=== PATIENT | female | born 1990 | race Caucasian/White ===

== ENCOUNTER 2018-04-15 21:50 | Emergency (ER) | payer OTHER, SELFPAY ==
[2018-04-15 21:53] VITALS: BP 123/78; PULSE 86; RESP 16; TEMP 36.4; O2SAT 95; BMI 27.4
[2018-04-15 22:35] LABS: Bacteria Urine Moderate (10-30); Culture Indicated Urine Cult Not Indicated; Hyaline Casts Urine 0-1/LPF; RBC Urine 0-1/HPF (0-5/HPF); Squamous Epithelial Cell Urine 5-10 /HPF; WBC Urine 0-1/HPF (0-5/HPF)
[2018-04-15] MEDS: KETOROLAC 60 MG/2 ML VIAL IM (22:58)
[2018-04-15] MEDS: CYCLOBENZAPRINE 10 MG PREPACK 1 BOTTLE MISC (22:58)
[2018-04-15 23:04] VITALS: BP 127/74; PULSE 71; RESP 20; O2SAT 100
--- NOTE | 2018-04-16 00:28 | ED_ITS ---
HPI - Back Pain/Injury General Chief Complaint: Back Pain/Injury Stated Complaint: BACK PAIN Time Seen by Provider: 04/15/18 21:53 Source: patient and family Mode of arrival: ambulatory Limitations: no limitations History of Present Illness HPI Narrative: A 19-year-old nonsmoking healthy female presents with her for evaluation of moderate bilateral low back pain since yesterday. She denies any specific injury but does have 2 young children. Her pain is worse with motion and improves with rest. She denies any numbness, tingling or weakness. She has no midline pain nor fever or chills. She denies any trouble with control of bowel or bladder. MD Complaint: back pain Onset (ago): day(s) Duration: constant Similar Symptoms Previously: No Location: lumbar spine Severity: moderate Quality: aching Radiation: none Relieving factors: immobilization Exacerbating factors: movement Associated symptoms: denies other symptoms Treatments prior to arrival: NSAIDS and acetaminophen Related Data Previous Rx's Medication Instructions Recorded cyclobenzaprine 10 mg PO TID PRN #14 tab 04/15/18 ketorolac 10 mg PO Q6H PRN #14 tab 04/15/18 Allergies Allergy/AdvReac Type Severity Reaction Status Date / Time amoxicillin Allergy Rash Verified 04/15/18 22:03 cefaclor [From [facility]] Allergy Rash Verified 04/15/18 22:03 Review of Systems Review of Systems All systems reviewed & are unremarkable except as noted in HPI and below Constitutional Denies chills, Denies fever(s), Denies lethargy and Denies weakness Eyes Denies change in vision, Denies eye discharge, Denies irritation and Denies loss of vision ENT Ears, Nose, Mouth, and Throat: Denies change in voice, Denies neck pain and Denies sore throat Cardiovascular Denies chest pain, Denies irregular heart rhythm, Denies lightheadedness, Denies palpitations, Denies dyspnea, Denies dyspnea on exertion and Denies orthopnea Respiratory Denies cough, Denies dyspnea, Denies dyspnea on exertion and Denies wheezing Gastrointestinal Gastrointestinal: Denies abdominal pain, Denies change in bowel habits, Denies diarrhea, Denies nausea and Denies vomiting Genitourinary Denies hematuria, Denies flank pain, Denies urinary incontinence and Denies urinary urgency Musculoskeletal Reports back pain and Denies neck pain Integumentary/Breasts Denies pruritus, Denies erythema, Denies rash and Denies wounds Neurologic Denies confusion, Denies loss of vision and Denies weakness Psychiatric Denies anxiety, Denies confusion, Denies depression, Denies homicidal ideation and Denies suicidal ideation Endocrine Denies palpitations Hematologic/Lymphatic Denies easy bruising Allergic/Immunologic Denies wheezing PFSH Social History Smoking Status: Never smoker Exam Narrative Exam Narrative: GEN: AOx3 and in mild distress EYES: Pupils are equal, round, and reactive to light and accommodation. Extraoccular muscles are intact bilaterally. There is no subconjunctival hemorrhage or exudate. CHEST: Lungs are clear to auscultation bilaterally and free of wheezes, rales, or rhonchi. Heart rate is regular rhythm, there are no murmurs, clicks, rubs, or gallops. There is no chest wall tenderness. ABD: Abdomen is soft and nontender. There is no guarding or rebound. Bowel sounds are normal in all 4 quadrants. There is no mass or organomegaly. EXT: Full painless ROM of all extremities with no loss of sensation or strength. SKIN: Warm, pink, and dry. No erythema or rash BACK: disk and tape machine tender but free of any obvious external abnormalities. Patient exam notes decreased range of motion and muscle spasm, but no CVA tenderness, or vertebral point tenderness. There are no symptoms of cauda equina such as saddle anesthesia, and decreased reflexes, decreased sensation or strength. Initial Vital Signs Initial Vital Signs: Vital Signs Temperature 97.5 F L 04/15/18 21:53 Pulse Rate 86 04/15/18 21:53 Respiratory Rate 16 04/15/18 21:53 Blood Pressure 123/78 04/15/18 21:53 Pulse Oximetry 95 04/15/18 21:53 Course Orders Ordered: ED Orders 04/15/18 22:22 Urine Microscopic Stat Discontinued Medications Cyclobenzaprine HCl (Flexeril 10 Mg Prepack) 1 bottle MISC SEEINSTR ONE Stop: 04/15/18 22:46 Last Admin: 04/15/18 22:58 Dose: 1 bottle Ketorolac Tromethamine (Toradol) 60 mg IM NOW ONE Stop: 04/15/18 22:46 Last Admin: 04/15/18 22:58 Dose: 60 mg Vital Signs - 8 hr 04/15/18 21:53 04/15/18 23:04 Temperature 97.5 F L Pulse Rate 86 71 Respiratory Rate 16 20 Blood Pressure 123/78 127/74 Pulse Oximetry 95 100 MDM - Back Pain/Injury Differential Diagnosis Differential diagnosis: Likely lumbar radiculopathy, sciatica, strain of lumbar region, renal colic, pyelonephritis, thoracic back pain and discitis Lab Data Lab Results 04/15/18 Range/Units 22:22 Urine RBC 0-1/hpf (0-5/HPF) Urine WBC 0-1/hpf (0-5/HPF) Ur Squamous Epith Cells 5-10 /hpf H Urine Bacteria Moderate (10-30) H (None) Hyaline Casts 0-1/lpf (None) Ur Culture Indicated? Cult not indicated Micro UA Comment Not Reportable Point of Care Testing Test Results Negative Urine Dip Bedside Urine Glucose Negative Bedside Urine Bilirubin - Negative Bedside Urine Ketone - Negative Urine Specific Edwards 1.025 Bedside Urine Occult Blood +/- Bedside Urine pH 6.0 Bedside Urine Protein - Negative Bedside Urine Urobilinogen - Negative Bedside Urine Nitrite - Negative Bedside Urine Leukocytes - Negative Esterase Discharge Plan Departure Patient Disposition: Home Clinical Impression: Strain of lumbar region Discharge Date/Time: 04/15/18 23:05 Interventions: ED Discharge Assessment Last Done: 04/15/18 23:04 Instructions: Activity May Be Better then Rest for Low Back Pain Recovery Activity Restrictions/Additional Instructions: *You have been diagnosed with [ acute lumbar pain ] *What to do: *Take medications as directed *Follow up with your primary care provider in 2-3 days, call for an appointment. Let them know you were seen in the Emergency Department and that we ask that you be seen in follow up *Return to ER if you should have any new, worsening or concerning symptoms , such as [ increasing pain, numbness, tingling, weakness, loss of control of bowel or bladder] Prescriptions: New cyclobenzaprine 10 mg tablet 10 mg PO TID PRN (Reason: muscle spasm) Qty: 14 RF: 0 ketorolac 10 mg tablet 10 mg PO Q6H PRN (Reason: pain) Qty: 14 RF: 0
== END 2018-04-15 23:06 | disposition home or self-care (01) ==
PROVIDERS: Emergency Provider Emergency Medicine
DX: S39.012A Strain of muscle, fascia and tendon of lower back, initial encounter (principal)
CPT/HCPCS: 81003; 81015; 81025; 96372; 99283; J1885

== ENCOUNTER 2019-06-17 11:39 | Emergency (ER) | payer OTHER, SELFPAY ==
--- NOTE | 2019-06-17 11:50 | DI.RAD.S_ITS ---
PROCEDURE: XR ANKLE LT MIN 3V INDICATIONS: injury TECHNIQUE: 3 views of the ankle were acquired. COMPARISON: None. FINDINGS: Bones: There is a nondisplaced fifth metatarsal base fracture. Soft tissues: No tibiotalar joint effusion. Achilles tendon appears normal. IMPRESSION: Nondisplaced fifth metatarsal base fracture. Dictated by: Natalie Magdaleno M.D. on 06/17/2019 at 12:19 Approved by: Natalie Magdaleno M.D. on 06/17/2019 at 12:20
[2019-06-17 12:12] VITALS: BP 113/73; PULSE 80; RESP 12; TEMP 36.9; O2SAT 99
--- NOTE | 2019-06-17 12:25 | ED.LOWEXIN ---
HPI - Extremity Injury (Lower) <VICTORINO Chirinos - Last Filed: 06/17/19 13:26> General Chief Complaint: Extremity Injury, Lower Stated Complaint: fell, rolled ankle (left) Time Seen by Provider: 06/17/19 12:16 Source: patient Mode of arrival: Ambulatory Limitations: no limitations History of Present Illness HPI Narrative: This is a 29-year-old female, nonsmoker, who presents to ED with family member with chief complain of left lateral foot pain and s/p inverted the affected foot this morning. Reports she was running while wearing large side sleeper and tripped which caused inverting affected foot and landed on right knee. Right knee has superficial abrasion and denies difficulty with movement or severe pain. Pain worse on the left foot with movements. Patient reports intact sensation. She denies previous injury to left foot or ankle. Related Data Previous Rx's Medication Instructions Recorded cyclobenzaprine 10 mg PO TID PRN #14 tab 04/15/18 ketorolac 10 mg PO Q6H PRN #14 tab 04/15/18 Allergies Allergy/AdvReac Type Severity Reaction Status Date / Time amoxicillin Allergy Rash Verified 04/15/18 22:03 cefaclor [From [facility]] Allergy Rash Verified 04/15/18 22:03 Review of Systems <VICTORINO Chirinos - Last Filed: 06/17/19 13:26> Review of Systems Narrative: General: Denies fever, chills, fatigue, malaise, sweats. Respiratory: Denies dyspnea, cough, wheezing, hemoptysis, sputum. Cardiovascular: Denies chest pain, palpitations, orthopnea, edema. Gastrointestinal: Denies nausea, vomiting, abdominal pain, diarrhea, constipation, melena. Musculoskeletal: See HPI Skin: Denies rash, skin lesions, or other. Neurologic: Denies weakness, headache, numbness, change in speech, confusion, seizures, incoordination. Patient History <VICTORINO Chirinos - Last Filed: 06/17/19 13:26> Surgical History History of appendectomy (Acute) History of section (Acute) Social History Smoking Status: Never smoker Smoking Status: Never smoker Substance Use Type: does not use Exam <Demetri VICTORINO Younger - Last Filed: 06/17/19 13:26> Narrative Exam Narrative: General appearance: well developed, well nourished, in no acute distress. Head: normocephalic, atraumatic, no scalp lesions, non-tender. ENT: Hearing grossly intact. Nose without bleeding, purulent discharge, septal hematoma or deviation. Mucous membrane moist, no mucosal lesion. Throat without erythema, tonsillar hypertrophy or exudate. Uvula in midline, airway patent. Neck/Thyroid: neck supple, full range of motion, no visible masses or meningeal signs. No JVD, non-tender without lymphadenopathy. Skin: Superficial abrasion on right knee. no suspicious rashes, lesions over visible areas. Warm and dry and appropriate color for ethnicity. Heart: no clubbing, no cyanosis, no edema. S1 and S2 normal. RRR w/o murmurs, clicks, or bruits. Lungs: Breathing even and unlabored. No stridor. No accessory muscles used. Able to speak in full sentences. Chest: normal shape and expansion. Abdomen: non-obese, non-distended. Neurologic: alert and oriented. Cognitive exam, [employer] and PNS grossly intact on informal exam. Psych: good eye contact, normal affect. Initial Vital Signs Initial Vital Signs: Vital Signs Temperature 98.4 F 06/17/19 12:12 Pulse Rate 80 06/17/19 12:12 Respiratory Rate 12 06/17/19 12:12 Blood Pressure 113/73 06/17/19 12:12 Pulse Oximetry 99 06/17/19 12:12 Extrem Right lower extremity: full ROM and knee Details: abnormal to inspection, tenderness, normal ROM and abrasion (Superficial on anterior knee); no swelling; no edema Left lower extremity: foot Details: normal capillary refill, abnormal to inspection, tenderness (Lateral midfoot), toes with normal ROM, edema (Mild edema to lateral midfoot), vascular exam Details: dorsalis pedis pulse present, tendon exam Details: active flexion normal and active extension normal and motor-sensory exam Details: light-touch normal; no unusual warmth, no abrasions, no ecchymosis and no crepitus <Akua Gonzalez DO - Last Filed: 06/19/19 07:31> Initial Vital Signs Initial Vital Signs: Vital Signs Temperature 98.4 F 06/17/19 12:12 Pulse Rate 80 06/17/19 12:12 Respiratory Rate 12 06/17/19 12:12 Blood Pressure 113/73 06/17/19 12:12 Pulse Oximetry 99 06/17/19 12:12 Scores <Demetri SeniorKRISTIN FragosoP - Last Filed: 06/17/19 13:26> GCS [place] coma scale eye opening: Spontaneous [place] coma scale verbal response: Orientated Idalmis coma scale motor response: Obey commands [place] coma scale total score: 15 Course <Demetri VICTORINO Yonuger - Last Filed: 06/17/19 13:26> Orders Ordered: Discontinued Medications Acetaminophen (Tylenol) 650 mg PO NOW ONE Stop: 06/17/19 12:24 Ibuprofen (Advil) 400 mg PO NOW ONE Stop: 06/17/19 12:24 Vital Signs Vital signs: Vital Signs - 8 hr 06/17/19 12:12 Temperature 98.4 F Pulse Rate 80 Respiratory Rate 12 Blood Pressure 113/73 Pulse Oximetry 99 <Akua Gonzalez DO - Last Filed: 06/19/19 07:31> Orders Ordered: Discontinued Medications Acetaminophen (Tylenol) 650 mg PO NOW ONE Stop: 06/17/19 12:24 Ibuprofen (Advil) 400 mg PO NOW ONE Stop: 06/17/19 12:24 Vital Signs Vital signs: Vital Signs - 8 hr 06/17/19 12:12 Temperature 98.4 F Pulse Rate 80 Respiratory Rate 12 Blood Pressure 113/73 Pulse Oximetry 99 MDM - Extremity Injury (Lower) <Demetri KRISTIN YoungerP - Last Filed: 06/17/19 13:26> Differential Diagnosis Differential diagnosis: Likely other (Foot fracture, foot sprain, abrasion to right knee) Medical Records Attestation: I reviewed the patient's medical records. Imaging Data XR-Foot Left: Radiologist's Impression: [address] [address] XRay Report Signed Patient: Christy Eid [facility]#: [id number] : 1990Acct:[id number] Age/Sex: 29 / FDate of Service: 06/17/19 Loc: ED Accession Number: [id number] Procedure: XR foot LT min 3V Ordering Provider: Demetri Younger PROCEDURE: XR FOOT LT MIN 3V INDICATIONS: 5th metatarsal fracture, s/p inverted foot TECHNIQUE: 3 views of the foot were acquired. COMPARISON: [facility], , XR ANKLE LT MIN 3V, 06/17/2019, 11:59. FINDINGS: Bones: Minimally displaced fifth metatarsal base fracture. Soft tissues: No tibiotalar joint effusion. Achilles tendon appears normal. IMPRESSION: Minimally displaced fifth metatarsal base fracture. Dictated by: Natalie Magdaleno M.D. on 06/17/2019 at 13:11 Approved by: Natalie Magdaleno M.D. on 06/17/2019 at 13:13 XR-Ankle LT: Radiologist's Impression: [address] [address] XRay Report Signed Patient: Christy Eid [facility]#: [id number] : 1990Acct:[id number] Age/Sex: 29 / FDate of Service: 06/17/19 Loc: ED Accession Number: [id number] Procedure: XR ankle LT min 3V Ordering Provider: Akua Gonzalez D.O. PROCEDURE: XR ANKLE LT MIN 3V INDICATIONS: injury TECHNIQUE: 3 views of the ankle were acquired. COMPARISON: None. FINDINGS: Bones: There is a nondisplaced fifth metatarsal base fracture. Soft tissues: No tibiotalar joint effusion. Achilles tendon appears normal. IMPRESSION: Nondisplaced fifth metatarsal base fracture. Dictated by: Natalie Magdaleno M.D. on 06/17/2019 at 12:19 Approved by: Natalie Magdaleno M.D. on 06/17/2019 at 12:20 MDM Narrative Medical decision making narrative: Xray test on L foot indicates minimally displaced 5th metatarsal fracture. Affected foot has been splinted with a posterior leg and crutches provided for nonweightbearing. RICE therapy discussed for pain, swelling and inflammation. Patient advised to use [id number] Tylenol and or Motrin as needed for discomfort and to follow up with [facility] orthopedist. Patient verbalized understanding and agrees with the treatment plan. Discharge Plan Departure Patient Disposition: Home Clinical Impression: Closed fracture of fifth metatarsal bone of left foot Qualifiers: Encounter type: initial encounter Fracture alignment: displaced Qualified Code(s): S92.352A - Displaced fracture of fifth metatarsal bone, left foot, initial encounter for closed fracture Discharge Date/Time: 06/17/19 13:34 Activity Restrictions/Additional Instructions: You have been diagnosed with [minimally displaced 5th metatarsal fracture on left foot. Her foot has been placed in a splint and crutches been given for nonweightbearing.]. What to do: *Take your medications as directed. Please take Tylenol and or Motrin as needed for discomfort. Tylenol 650-1000 mg up to 4 times a day for pain. Ibuprofen 400 mg 3 times a day with food as needed for discomfort. Please elevate your affected foot for pain and swelling. Use cool pack for next couple of days for swelling, inflammation and pain. Keep your splint on all time. *Follow up with your primary care provider in 2-3 days, call for an appointment and please contact [facility]. Let them know you were seen in the ED and that we asked you to be seen in follow up. *Return to ED if you have any new, worsening, or concerning symptoms, such as [severe pain, tingling/numbness/weakness to you're affected foot, chest pain, breathing difficulty, unable to tolerate fluids or any acute concerns]. Prescriptions: No Action cyclobenzaprine 10 mg tablet 10 mg PO TID PRN (Reason: muscle spasm) Qty: 14 RF: 0 ketorolac 10 mg tablet 10 mg PO Q6H PRN (Reason: pain) Qty: 14 RF: 0 Referrals: [facility] [Provider Group] [facility] [Outside]
--- NOTE | 2019-06-17 12:32 | DI.RAD.S_ITS ---
PROCEDURE: XR FOOT LT MIN 3V INDICATIONS: 5th metatarsal fracture, s/p inverted foot TECHNIQUE: 3 views of the foot were acquired. COMPARISON: [facility], CR, XR ANKLE LT MIN 3V, 06/17/2019, 11:59. FINDINGS: Bones: Minimally displaced fifth metatarsal base fracture. Soft tissues: No tibiotalar joint effusion. Achilles tendon appears normal. IMPRESSION: Minimally displaced fifth metatarsal base fracture. Dictated by: Natalie Magdaleno M.D. on 06/17/2019 at 13:11 Approved by: Natalie Magdaleno M.D. on 06/17/2019 at 13:13
== END 2019-06-17 13:34 | disposition home or self-care (01) ==
PROVIDERS: Emergency Provider Nurse Practitioner Family
DX: S92.352A Displaced fracture of fifth metatarsal bone, left foot, initial encounter for closed fracture (principal); W01.0XXA Fall on same level from slipping, tripping and stumbling without subsequent striking against object, initial encounter
CPT/HCPCS: 29515; 73610; 73630; 99283; 99284

== ENCOUNTER → 2020-06-09 11:11 | Outpatient (CLI) | payer OTHER, SELFPAY ==
[2020-06-09 12:42] LABS: COVID19 -Nasal RAPID Negative (Negative)
== END ==
PROVIDERS: PCP Family Medicine; Visit Provider Nurse Practitioner
DX: Z20.822 Contact with and (suspected) exposure to COVID-19 (principal)
CPT/HCPCS: 87635

== ENCOUNTER 2020-06-10 09:17 | Day surgery (SDC) | payer OTHER, SELFPAY ==
[2020-06-10] VITALS (12 sets, daily range): BP systolic 104–136; BP diastolic 71–85; PULSE 74–97; RESP 12–16; TEMP 36.5–37.1; O2SAT 97–99; BMI 29.2
--- NOTE | 2020-06-10 09:56 | PM.PREOP ---
Pre-operative Note COVID-19 COVID-19 status: Negative Result date/Date tested (Pos, Neg/Pending): 06/09/20 Interval Note History & Physical reviewed/Exam performed by Physician: Yes Changes to H&P: No
--- NOTE | 2020-06-10 09:57 | PM.OP.1 ---
Operative Date/Time/Diagnoses Date of procedure: 06/10/20 Time of procedure: 12:33 Pre-op diagnosis: MELVI, Septal deviation, ITH, Allergic Rhinitis Post-op diagnosis: same Procedure & Clinicians Procedure: Septoplasty, ITR via intramural cautery Same procedure as scheduled: Yes Indications: 30-year-old female with the above diagnoses incompletely managed with medical therapy presents for the above procedures. Following discussion of the material risks benefits complications and alternatives, she elected to proceed. Surgeon: Ed Carrillo Click Yes if Unassisted: Yes Anesthesia Type: General and Local Operative Notes Findings: RIGHT caudal deviation 2-3+, LEFT high/posterior deviation 2-3+, elongated caudal septum required shortening Closure Type: primary Specimen(s): none sent Estimated Blood Loss (mL): 130 Procedure in detail: Following identification and confirmation of consent as well as preoperative Afrin nasal spray, the patient was brought to the operating room suite and placed in the supine position. General endotracheal anesthesia was administered. I infiltrated the septum widely bilaterally with 1% lidocaine 1 100,000 epinephrine followed by temporary packing with cotton with Afrin and 4% lidocaine. Following sterile prep and drape, the packing was removed and I performed a right isai-transfixion incision, elevated the right mucoperichondrial and mucoperiosteal flap. I disarticulated near the bony/cartilaginous junction and elevated the left mucoperiosteal flap. Deviated portions of the perpendicular plate of the ethmoid and vomer were resected. The residual quadrilateral cartilage was further straightened by trimming it inferiorly as well as reducing the maxillary crest. A 2 mm strip of cartilage paralleling the residual 1 cm dorsal and caudal strut was resected to further straighten the quadrilateral cartilage. The hemitransfixion incision was closed with interrupted 5 0 chromic followed by a running 4 0 plain gut mattress suture to reapproximate the septal flaps. At case completion, 20/1000th of an inch silastic splints were placed bilaterally, sutured anteriorly with a single 4 0 nylon. The head of each inferior turbinate had been previously infiltrated with additional local anesthetic and a 25 gauge spinal needle was used to impale the length of the turbinate, with cautery on a setting of 15 activated on slow withdrawal X 2. The turbinates were then outfractured. The procedure completed, sponge and needle counts were correct and the patient was extubated in the operating room and taken to recovery room in stable condition without known complication. Postoperative care: Nasal saline every hour while awake, Vaseline or Polysporin to the nostrils at all times, ice to the upper lip, begin irrigations t.i.d. beginning pod 1. Humidifier at the bedside blowing on the face. Tylenol alternating with Advil for pain control, oxycodone if necessary for breakthrough pain. Complications: none Post-operative Condition: stable Disposition: same day surgery Plan for aftercare: Ice to upper lip as tolerated. Nasal saline Qh while awake, vaseline or polysporin to the nostrils at all times, irrigate TID beginning tomorrow if desired, elevate HOB, alternate Tylenol and Advil Q3h, Oxycodone for breakthru pain. Follow-up in 1 week for splint removal.
[2020-06-10] MEDS: LACTATED RINGERS 1,000 ML 42 ML IV (10:01)
[2020-06-10] MEDS: OXYMETAZOLINE NASAL SPRAY 15 ML 2 SPRAYS NASAL ×2 (10:05→11:31)
--- NOTE | 2020-06-10 11:18 | SUR.OPER ---
Supine on padded OR bed, head on pillow, arm padded and tucked at side, legs uncrossed, safety belt at thigh, tape over blanket over lower legs .
[2020-06-10] MEDS: LIDOCAINE 4% SOLN 50 ML 20 ML TOP (11:29)
[2020-06-10] MEDS: LIDOCAINE 1% W/EPI 20 ML INJ (11:30)
[2020-06-10] MEDS: ONDANSETRON 4 MG/2 ML INJ IV (12:52)
[2020-06-10] MEDS: OXYCODONE IR 5 MG TABLET PO ×2 (13:05→14:09)
[2020-06-10] MEDS: ACETAMINOPHEN 325 MG TABLET 650 MG PO (13:06)
== END 2020-06-10 15:10 | disposition home or self-care (01) ==
PROVIDERS: PCP Family Medicine; Referring Provider Otolaryngology; Visit Provider Otolaryngology
PROC: (CPT 30520; principal; 2020-06-10 10:30)
DX: J34.89 Other specified disorders of nose and nasal sinuses (principal); J34.2 Deviated nasal septum; J34.3 Hypertrophy of nasal turbinates; J30.9 Allergic rhinitis, unspecified
CPT/HCPCS: 30520; 30140; 81025; A9270; J1100; J2250; J2405; J2704; J3010

== ENCOUNTER 2020-11-06 15:02 | Emergency (ER) | payer OTHER, SELFPAY ==
[2020-11-06 15:23] VITALS: BP 121/79; PULSE 89; RESP 18; TEMP 37.1; O2SAT 97; BMI 27.4
[2020-11-06 15:42] LABS: Add Manual Diff / Slide Review NO; Basophils Absolute Auto 100 /uL (0-100); Basophils Percent Auto 0.6 % (0-2); Eosinophils Absolute Auto 200 /uL (0-450); Eosinophils Percent Auto 2.3 % (2-4); Hematocrit 38.8 % (36-46); Hemoglobin 13.2 g/dL (12.0-16.0); Lymphocytes Absolute Auto 2600 /uL (1100-4500); Lymphocytes Percent Auto 29.8 % (25-40); Mean Corpuscular HGB Conc 34.1 % (30-36); Mean Corpuscular Hemoglobin 28.6 PG (26-34); Mean Corpuscular Volume 83.7 fL (80-100); Monocytes Absolute Auto 500 /uL (0-900); Monocytes Percent Auto 5.8 % (3-14); Neutrophils Absolute Auto 5300 /uL (1500-7000); Neutrophils Percent Auto 61.5 % (50-75); Platelet Count 300 X10^3/uL (150-400); Red Blood Cell Count 4.63 X10^6/uL (4.0-5.2); White Blood Cell Count 8.7 X10^3/uL (4.5-11.0)
[2020-11-06 15:53] LABS: BUN Creatinine Ratio 14.3 (6-22); Blood Urea Nitrogen 9 mg/dL (7-17); Calcium 9.7 mg/dL (8.4-10.2); Carbon Dioxide 27 mmol/L (22-32); Chloride 105 mmol/L (98-107); Estimated Glomerular Filt Rate > 60.0 mL/min (>60); Glucose 101 mg/dL (70-100); HEMOLYSIS < 15 (0-50); Potassium 3.7 mmol/L (3.4-5.1); Sodium 140 mmol/L (137-145)
[2020-11-06 16:08] LABS: Bacteria Urine None Seen
[2020-11-06 16:12] LABS: RBC Urine >100/HPF (0-5/HPF); Squamous Epithelial Cell Urine 0-1 /HPF (0-5/HPF); WBC Urine 0-1/HPF (0-5/HPF)
--- NOTE | 2020-11-06 16:12 | ED.GENADULT ---
HPI - General Adult General Chief complaint: Vaginal Bleeding Stated complaint: Heavier than Normal Bleeding, Dizziness Time Seen by Provider: 11/06/20 15:52 Source: patient Mode of arrival: Ambulatory Limitations: no limitations History of Present Illness HPI narrative: Patient is a 30-year-old female who approximately 2 weeks ago had a Mirena IUD removed. She states she had had it in for about 4 years and she and her are now at a point where they would like to try to have children. She states that it was a uncomplicated procedure about 2 days later she had which she thought was a normal menstrual cycle that lasted approximately 4 days. Her symptoms then completely resolved and a couple days ago bleeding restarted and she is now having more bleeding and lower abdominal discomfort. She also feels very lightheaded. Prior to the insertion of the IUD she states she was very regular with her menstrual cycles. She did not have any menstrual cycles while she had the IUD in place. Related Data Home Medications Medication Instructions Recorded Confirmed acetaminophen [Tylenol Extra 1,000 mg PO Q6H PRN 06/09/20 06/10/20 Strength] ibuprofen 400 mg PO Q6H PRN 06/09/20 06/10/20 multivitamin 1 tab PO DAILY 06/09/20 06/10/20 Allergies Allergy/AdvReac Type Severity Reaction Status Date / Time amoxicillin Allergy Rash Verified 06/10/20 09:43 cefaclor [From Ceclor] Allergy Rash Verified 06/10/20 09:43 Review of Systems Constitutional Constitutional: Denies headache(s) ENT Ears, Nose, Mouth, and Throat: Denies headache(s) Cardiovascular Cardiovascular: Denies syncope, Denies rapid heart rate and Denies dyspnea Respiratory Respiratory: Denies cough and Denies dyspnea Gastrointestinal Gastrointestinal: Reports abdominal pain, Denies nausea and Denies vomiting Genitourinary Genitourinary: Denies dysuria Genitourinary: Reports abnormal vaginal bleeding and Denies dysuria Musculoskeletal Musculoskeletal: Reports system reviewed and no additional complaints, except as documented Integumentary/Breasts Skin/Breast: Reports system reviewed and no additional complaints, except as documented Neurologic Neurologic: Denies syncope and Denies headache(s) Hematologic/Lymphatic On Anticoagulants: No Allergic/Immunologic Allergic/Immunologic: Reports system reviewed and no additional complaints, except as documented Patient History Medical History Allergic rhinitis Anxiety Depression Fracture of 5th metatarsal Nasal septal deviation Nasal turbinate hypertrophy Surgical History History of appendectomy History of section Social History household members: spouse and children Smoking Status: Never smoker alcohol intake: current Smoking Status: Never smoker alcohol intake frequency: holidays/special occasions only Substance Use Type: does not use Exam Initial Vital Signs Initial Vital Signs: Vital Signs Temperature 98.8 F 11/06/20 15:23 Pulse Rate 89 11/06/20 15:23 Respiratory Rate 18 11/06/20 15:23 Blood Pressure 121/79 11/06/20 15:23 Pulse Oximetry 97 11/06/20 15:23 Const General: cooperative and comfortable Limitations: mental status not altered HENMT Head: normal to inspection and normocephalic Resp Effort & Inspection: normal respiratory effort Auscultation: clear to auscultation bilaterally Cardio Rate: regular rate Rhythm: regular rhythm GI Inspection: non-distended Skin Lesions: no lesions Rashes: no rashes Neuro General: patient alert and patient awake Cognition: normal cognition Speech: speech normal Extrem General: normal to inspection and capillary refill normal Psych Appearance: grossly normal and well kempt Course Orders Ordered: ED Orders 11/06/20 15:12 Urine Microscopic Stat 11/06/20 15:28 Basic Metabolic Panel Stat Complete Blood Count AUTO DIFF Stat Vital Signs Vital signs: Vital Signs - 8 hr 11/06/20 15:23 11/06/20 16:25 Temperature 98.8 F Pulse Rate 89 81 Respiratory Rate 18 16 Blood Pressure 121/79 Pulse Oximetry 97 97 Medical Decision Making Lab Data Lab results reviewed: Yes I reviewed the patient's lab results. Result diagrams: 11/06/20 15:28 11/06/20 15:28 Labs: Lab Results 11/06/20 11/06/20 11/06/20 Range/Units 15:12 15:28 15:28 WBC 8.7 (4.5-11.0) X10^3/uL RBC 4.63 (4.0-5.2) X10^6/uL Hgb 13.2 (12.0-16.0) g/dL Hct 38.8 (36-46) % MCV 83.7 (80-100) fL MCH 28.6 (26-34) PG MCHC 34.1 (30-36) % RDW 13.0 (11.6-14.8) % Plt Count 300 (150-400) X10^3/uL Neut % (Auto) 61.5 (50-75) % Lymph % (Auto) 29.8 (25-40) % [place] % (Auto) 5.8 (3-14) % Eos % (Auto) 2.3 (2-4) % Baso % (Auto) 0.6 (0-2) % Neut # (Auto) 5300 (2554-8002) /uL Lymph # (Auto) 2600 (3234-8584) /uL [place] # (Auto) 500 (0-900) /uL Eos # (Auto) 200 (0-450) /uL Baso # (Auto) 100 (0-100) /uL Sodium 140 (137-145) mmol/L Potassium 3.7 (3.4-5.1) mmol/L Chloride 105 (98-107) mmol/L Carbon Dioxide 27 (22-32) mmol/L BUN 9 (7-17) mg/dL Creatinine 0.63 (0.52-1.04) mg/dL Estimated GFR > 60.0 (>60) mL/min BUN/Creatinine Ratio 14.3 (6-22) Glucose 101 H (70-100) mg/dL Calcium 9.7 (8.4-10.2) mg/dL Urine RBC >100/hpf H (0-5/HPF) Urine WBC 0-1/hpf (0-5/HPF) Ur Squamous Epith Cells 0-1 /hpf (0-5/HPF) Urine Bacteria None seen (None) Ur Culture Indicated? Cult not indicated Point of Care Testing Test Results Negative Urine Dip Bedside Urine Glucose Negative Bedside Urine Bilirubin - Negative Bedside Urine Ketone - Negative Urine Specific [place] 1.015 Bedside Urine Occult Blood +++ Bedside Urine pH 6 Bedside Urine Protein + 30 Bedside Urine Urobilinogen - Negative Bedside Urine Nitrite - Negative Bedside Urine Leukocytes - Negative Esterase Point of care testing: Point of Care Testing Test Results Negative Urine Dip Bedside Urine Glucose Negative Bedside Urine Bilirubin - Negative Bedside Urine Ketone - Negative Urine Specific [place] 1.015 Bedside Urine Occult Blood +++ Bedside Urine pH 6 Bedside Urine Protein + 30 Bedside Urine Urobilinogen - Negative Bedside Urine Nitrite - Negative Bedside Urine Leukocytes - Negative Esterase MDM Narrative Medical decision making narrative: Labs are unremarkable. Vital signs are unremarkable. I suspect that her symptoms are related to the change in hormones that her body is experiencing after having the IUD removed. Provided reassurance to the patient. I feel that we can hold on further workup for now. She was given strict return precautions. She expressed understanding and agreement. Discharge Plan Departure Patient Disposition: Home Clinical Impression: Abnormal vaginal bleeding Instructions: DI for Vaginal Bleeding Activity Restrictions/Additional Instructions: I recommend that you contact her primary doctor for follow-up. I suspect that the abnormal bleeding that you are having is related to the change in hormones because you had the IUD removed.Return to the emergency department for any new or worsening symptoms Prescriptions: No Action multivitamin Tablet 1 tab PO DAILY RF: 0 ibuprofen 200 mg Capsule 400 mg PO Q6H PRN (Reason: Pain) RF: 0 acetaminophen [Tylenol Extra Strength] 500 mg Tablet 1,000 mg PO Q6H PRN (Reason: Pain) RF: 0 Referrals: Ayla Horta [Primary Care Provider] -
[2020-11-06 16:13] LABS: Culture Indicated Urine Cult Not Indicated
[2020-11-06 16:25] VITALS: PULSE 81; RESP 16; O2SAT 97
== END 2020-11-06 16:27 | disposition home or self-care (01) ==
PROVIDERS: Emergency Medicine; Emergency Provider Emergency Medicine; PCP Family Medicine
DX: N93.9 Abnormal uterine and vaginal bleeding, unspecified (principal)
CPT/HCPCS: 36415; 80048; 81003; 81015; 81025; 85025; 99283

== ENCOUNTER 2021-10-03 16:14 | Emergency (ER) | payer OTHER, SELFPAY ==
[2021-10-03 16:45] VITALS: BP 127/74; PULSE 92; RESP 18; TEMP 38.3; O2SAT 97; BMI 26.5
--- NOTE | 2021-10-03 16:49 | DI.RAD.S_ITS ---
PROCEDURE: XR CHEST 1V INDICATIONS: cough, chest pain TECHNIQUE: One view of the chest was acquired. COMPARISON: None. FINDINGS: Surgical changes and devices: None. Lungs and pleura: Lungs are clear. No pleural effusions or pneumothorax. Mediastinum: Mediastinal contours appear normal. Heart size is normal. Bones and chest wall: No suspicious bony lesions. Overlying soft tissues appear unremarkable. IMPRESSION: No acute cardiopulmonary disease process. Dictated by: Jeimy Jackson MD, PhD on 10/03/2021 at 17:16 Approved by: Jeimy Jackson MD, PhD on 10/03/2021 at 17:16
[2021-10-03 17:08] LABS: COVID19 -Nasal RAPID POSITIVE (Negative)
--- NOTE | 2021-10-03 19:49 | ED.FEVER ---
HPI - Fever <Tristan Greene PA-C - Last Filed: 10/03/21 19:56> General Chief Complaint: Fever Stated Complaint: COUGH HEADACHE CHEST PAIN Time Seen by Provider: 10/03/21 17:28 Source: patient Mode of arrival: Ambulatory History of Present Illness HPI Narrative: 31-year-old female with no reported past medical history presents to the ED with 1 week of fever, cough. Patient denies sore throat, runny nose, chest pain, shortness of breath, nausea, vomiting, diarrhea, lightheadedness, dizziness, syncope. Patient is vaccinated for COVID-19. Related Data Home Medications Medication Instructions Recorded Confirmed acetaminophen 500 mg tablet 1,000 mg PO Q6H PRN 06/09/20 06/10/20 (Tylenol Extra Strength) ibuprofen 200 mg capsule 400 mg PO Q6H PRN 06/09/20 06/10/20 multivitamin 1 tab PO DAILY 06/09/20 06/10/20 Allergies Allergy/AdvReac Type Severity Reaction Status Date / Time amoxicillin Allergy Rash Verified 06/10/20 09:43 cefaclor [From [facility]] Allergy Rash Verified 06/10/20 09:43 Review of Systems <Tristan Greene PA-C - Last Filed: 10/03/21 19:56> Review of Systems ROS Unobtainable: All systems reviewed & are unremarkable except as noted in HPI and below Constitutional Constitutional: Denies chills, Reports fatigue, Reports fever(s), Denies frequent falls, Denies lethargy and Denies weakness Eyes Eyes: Denies change in vision, Denies eye discharge, Denies irritation and Denies loss of vision ENT Ears, Nose, Mouth, and Throat: Denies change in voice, Denies dizziness, Denies neck pain, Denies sore throat and Denies throat swelling Cardiovascular Cardiovascular: Denies chest pain, Denies irregular heart rhythm, Denies lightheadedness, Denies palpitations, Denies dyspnea, Denies dyspnea on exertion and Denies orthopnea Respiratory Respiratory: Reports cough, Denies dyspnea, Denies dyspnea on exertion and Denies wheezing Gastrointestinal Gastrointestinal: Denies abdominal pain, Denies change in bowel habits, Denies diarrhea, Denies nausea and Denies vomiting Genitourinary Genitourinary: Denies hematuria, Denies flank pain, Denies urinary incontinence and Denies urinary urgency Musculoskeletal Musculoskeletal: Denies back pain, Denies muscle weakness, Denies neck pain, Denies numbness and Denies tingling Integumentary/Breasts Skin/Breast: Denies pruritus, Denies erythema, Denies rash and Denies wounds Neurologic Neurologic: Denies behavioral changes, Denies confusion, Denies dizziness, Denies frequent falls, Denies loss of vision, Denies numbness, Denies tingling and Denies weakness Psychiatric Psychiatric: Denies anxiety, Denies behavioral changes, Denies confusion, Denies depression, Denies homicidal ideation and Denies suicidal ideation Endocrine Endocrine: Reports fatigue, Denies flushing and Denies palpitations Hematologic/Lymphatic Hematologic/Lymphatic: Denies easy bruising Allergic/Immunologic Allergic/Immunologic: Denies urticaria, Denies throat swelling and Denies wheezing Patient History <Tristan Greene PA-C - Last Filed: 10/03/21 19:56> Medical History Allergic rhinitis Anxiety Depression Fracture of 5th metatarsal Nasal septal deviation Nasal turbinate hypertrophy Surgical History History of appendectomy History of section Social History household members: spouse and children Smoking Status: Never smoker alcohol intake: current Smoking Status: Never smoker alcohol intake frequency: holidays/special occasions only Substance Use Type: does not use Exam <Tristan Greene PA-C - Last Filed: 10/03/21 19:56> Narrative Exam Narrative: Const General:?cooperative, healthy appearing and comfortable [facility] Head:?normal to inspection Ears:?hearing grossly normal bilaterally Nose:?external nose normal Face and sinus:?normal facial exam and sinuses nontender Mouth:?oral mucosae normal Throat:?posterior oropharynx normal Eyes General:?appearance normal, both eyes and all related structures Neck Neck:?normal visual inspection and no lymphadenopathy noted Resp Effort & Inspection:?normal respiratory effort Auscultation:?clear to auscultation bilaterally Cardio Rate:?regular rate Rhythm:?regular rhythm Neuro General:?patient alert, patient awake and patient oriented x3 Initial Vital Signs Initial Vital Signs: Vital Signs Temperature 100.9 F H 10/03/21 16:45 Pulse Rate 92 H 10/03/21 16:45 Respiratory Rate 18 10/03/21 16:45 Blood Pressure 127/74 10/03/21 16:45 Pulse Oximetry 97 10/03/21 16:45 <Juan Alcazar DO - Last Filed: 10/04/21 05:56> Initial Vital Signs Initial Vital Signs: Vital Signs Temperature 100.9 F H 10/03/21 16:45 Pulse Rate 92 H 10/03/21 16:45 Respiratory Rate 18 10/03/21 16:45 Blood Pressure 127/74 10/03/21 16:45 Pulse Oximetry 97 10/03/21 16:45 Course <Tristan Greene PA-C - Last Filed: 10/03/21 19:56> Orders Ordered: ED Orders 10/03/21 16:49 XR chest 1V Stat EKG-12 Lead Stat 10/03/21 16:53 COVID19 -Nasal RAPID/Pre-Proc Stat Vital Signs Vital signs: Vital Signs - 8 hr 10/03/21 16:45 Temperature 100.9 F H Pulse Rate 92 H Respiratory Rate 18 Blood Pressure 127/74 Pulse Oximetry 97 <Juan Alcazar DO - Last Filed: 10/04/21 05:56> Orders Ordered: ED Orders 10/03/21 16:49 XR chest 1V Stat EKG-12 Lead Stat 10/03/21 16:53 COVID19 -Nasal RAPID/Pre-Proc Stat Vital Signs Vital signs: Vital Signs - 8 hr 10/03/21 16:45 Temperature 100.9 F H Pulse Rate 92 H Respiratory Rate 18 Blood Pressure 127/74 Pulse Oximetry 97 MDM - Fever <RASHAUN Warren Last Filed: 10/03/21 19:56> Lab Data Lab results narrative: COVID 19 positive Labs: Lab Results 10/03/21 Range/Units 16:53 SARS-CoV-2 (PCR) Positive H (Negative) Point of Care Testing Test Results Negative Imaging Data Chest x-ray: Radiologist's Impression: PROCEDURE:? XR CHEST 1V ? INDICATIONS:? cough, chest pain ? TECHNIQUE:? One view of the chest was acquired.? ? COMPARISON:? None. ? FINDINGS:? ? Surgical changes and devices:? None.? ? Lungs and pleura:? Lungs are clear.? No pleural effusions or pneumothorax.? ? Mediastinum:? Mediastinal contours appear normal.? Heart size is normal.? ? Bones and chest wall:? No suspicious bony lesions.? Overlying soft tissues appear unremarkable.? ? IMPRESSION:? No acute cardiopulmonary disease process. ? ? Dictated by: Jeimy Jackson MD, PhD on 10/03/2021 at 17:16 ? ? Approved by: Jeimy Jackson MD, PhD on 10/03/2021 at 17:16 ? MDM Narrative Medical decision making narrative: 31-year-old female with no reported past medical history presents to the ED with 1 week of fever, cough. Concern for COVID-19 infection versus other viral syndrome. Patient tested positive for COVID-19 in the ED. chest x-ray without acute findings. Was stable in the ED. supportive care discussed with patient. ED return precautions discussed with patient. Patient verbalized understanding. <Juan Alcazar DO - Last Filed: 10/04/21 05:56> Lab Data Labs: Lab Results 10/03/21 Range/Units 16:53 SARS-CoV-2 (PCR) Positive H (Negative) Point of Care Testing Test Results Negative Discharge Plan Departure Patient Disposition: Home Clinical Impression: COVID-19 Instructions: DI for COVID-19 (Suspected or Confirmed ) Activity Restrictions/Additional Instructions: You were evaluated in the ED today for a fever, cough. You tested positive for COVID-19 today. You may continue to take ibuprofen, Tylenol, [id number] cough suppressants. Please make sure to stay for well hydrated. Return to the ED if you experience any chest pain or shortness of breath. Prescriptions: No Action multivitamin Tablet 1 tab PO DAILY 0RF ibuprofen 200 mg Capsule 400 mg PO Q6H PRN (Reason: Pain) 0RF acetaminophen [Tylenol Extra Strength] 500 mg Tablet 1,000 mg PO Q6H PRN (Reason: Pain) 0RF Referrals: Ayla Horta [Primary Care Provider] - <Juan Alcazar DO - Last Filed: 10/04/21 05:56> Cosign ED Attending Cosangelaature Attestation: I was immediately available in the department for consultation. This documentation has been reviewed and I agree with assessment and plan. Supervised by Juan Alcazar DO
== END 2021-10-03 19:28 | disposition home or self-care (01) ==
PROVIDERS: Emergency Medicine; Emergency Provider Student in an Organized Health Care Education/Training Program; PCP Family Medicine
DX: U07.1 COVID-19 (principal); R05.9 Cough, unspecified; R07.9 Chest pain, unspecified
CPT/HCPCS: 71045; 81025; 87635; 93005; 99283; C9803

== ENCOUNTER → 2022-01-17 15:47 | Outpatient (CLI) | payer OTHER, SELFPAY ==
--- NOTE | 2022-01-17 15:48 | DI.US.S_ITS ---
PROCEDURE: US OB <= 14 WEEKS FETUS INDICATIONS: Dating and viability OUTSIDE/PRIOR DATING DATA: Last menstrual period (LMP): 11/15/2021 LMP-based estimated date of delivery (BLAKE): 08/22/2022. First dating scan (date and location): 01/17/2022 Estimated date of delivery (BLAKE) from first dating scan: 08/22/2022. TECHNIQUE: Real-time scanning was performed of the fetus and maternal pelvic organs, with image documentation. COMPARISON: None. FINDINGS: Embryo: Single intrauterine gestational sac is seen with fetus and yolk sac seen. [place]-rump length measures 2.31 cm. Estimated gestational age is 9 weeks, 0 day. Heart rate: 168 beats per minute. Maternal organs: Ovaries are visualized and are within normal limits. Corpus luteal cyst is noted in left ovary and measures 1.4 x 1.2 x 1.5 cm in size. IMPRESSION: 1. Single live intrauterine gestation with fetus and yolk sac seen. heart rate is 168 beats per minute. Estimated gestational age is 9 weeks, 0 day. 2. Corpus luteal cyst in left ovary as above. We strive to produce accurate, complete, and clear reports of imaging services. To assist us in improving patient care, this report was composed using standard report templates and voice recognition software. Therefore, it may contain abnormal punctuation, insertions and/or omissions. Occasional wrong-word or sound-alike substitutions may occur. Though we review the report and make efforts to correct it, we do recommend that the report be read carefully in proper context to recognize any text inaccuracies. Dictated by: Yunier Laughlin M.D. on 01/17/2022 at 16:38 Approved by: Yunier Laughlin M.D. on 01/17/2022 at 16:40
== END ==
PROVIDERS: PCP Family Medicine; Referring Provider Obstetrics & Gynecology; Visit Provider Obstetrics & Gynecology
DX: O34.81 Maternal care for other abnormalities of pelvic organs, first trimester (principal); N83.202 Unspecified ovarian cyst, left side; Z3A.09 9 weeks gestation of pregnancy
CPT/HCPCS: 76801

== ENCOUNTER → 2022-02-14 16:05 | Outpatient (CLI) | payer OTHER, SELFPAY ==
[2022-02-14 18:04] LABS: Add Manual Diff / Slide Review NO; Basophils Absolute Auto 0 /uL (0-100); Basophils Percent Auto 0.2 % (0-2); Eosinophils Absolute Auto 100 /uL (0-450); Eosinophils Percent Auto 1.4 % (2-4); Hematocrit 35.4 % (36-46); Hemoglobin 12.6 g/dL (12.0-16.0); Lymphocytes Absolute Auto 2500 /uL (1100-4500); Lymphocytes Percent Auto 23.6 % (25-40); Mean Corpuscular HGB Conc 35.7 % (30-36); Mean Corpuscular Hemoglobin 29.7 PG (26-34); Mean Corpuscular Volume 83.3 fL (80-100); Monocytes Absolute Auto 600 /uL (0-900); Monocytes Percent Auto 5.6 % (3-14); Neutrophils Absolute Auto 7300 /uL (1500-7000); Neutrophils Percent Auto 69.2 % (50-75); Platelet Count 287 X10^3/uL (150-400); Red Blood Cell Count 4.25 X10^6/uL (4.0-5.2); Red Cell Distribution Width 13.5 % (11.6-14.8); White Blood Cell Count 10.6 X10^3/uL (4.5-11.0)
[2022-02-14 18:13] LABS: Appearance Urine UA CLEAR; Bilirubin Urine UA NEGATIVE (NEGATIVE); Color Urine UA YELLOW; Glucose Urine UA NEGATIVE (Negative); Ketones Urine UA TRACE (NEGATIVE); Leukocyte Esterase Urine UA 1+ (NEGATIVE); Nitrite Urine UA NEGATIVE (Negative); Occult Blood Urine UA NEGATIVE (Negative); Protein Urine UA TRACE (Negative)
[2022-02-14 18:18] LABS: pH Urine UA 7.5 (4.5-8.0)
[2022-02-14 18:23] LABS: RBC Urine 0-1/HPF (0-5/HPF)
[2022-02-14 18:24] LABS: Amorphous Sediment Urine 1+; Bacteria Urine Moderate (10-30); Squamous Epithelial Cell Urine 10-30 /HPF (0-5/HPF); WBC Urine 5-10/HPF (0-5/HPF)
[2022-02-14 19:34] LABS: Urine N gonorrhoeae NOT DETECTED
[2022-02-14 20:31] LABS: Urine Chlamydia NOT DETECTED
[2022-02-15 06:38] LABS: RPR Screen Non Reactive (Non Reactive)
[2022-02-16 08:31] LABS: Varicella IgG Antibody 362 index (Immune >165)
[2022-02-16 16:36] LABS: Rubella Antibody IgG 44.3 IU/mL (>15)
[2022-02-16 16:50] LABS: Hepatitis B Surface Antigen NEGATIVE s/c (NEGATIVE)
[2022-02-16 17:23] LABS: HIV 1 & 2 Ab/Ag 4th Gen Combo NEGATIVE (NEGATIVE); Hep C Virus Ab w/Reflex Quant NEGATIVE s/c (NEGATIVE)
== END ==
PROVIDERS: Referring Provider Obstetrics & Gynecology; Visit Provider Obstetrics & Gynecology
DX: Z34.81 Encounter for supervision of other normal pregnancy, first trimester (principal); Z3A.12 12 weeks gestation of pregnancy
CPT/HCPCS: 36415; 80055; 81003; 81015; 86787; 86803; 86850; 86900; 86901; 87086; 87389; 87491; 87591

== ENCOUNTER → 2022-03-15 10:24 | Outpatient (CLI) | payer OTHER, SELFPAY ==
[2022-03-17 20:17] LABS: AFP Value 35.2 ng/mL (.); Insulin Dep Diabetes No (.); OSBR Risk 1IN 10000 (.); Results Report (.); Test Results *Screen Negative* (.)
== END ==
PROVIDERS: Referring Provider Obstetrics & Gynecology; Visit Provider Obstetrics & Gynecology
DX: Z34.82 Encounter for supervision of other normal pregnancy, second trimester (principal); Z3A.17 17 weeks gestation of pregnancy
CPT/HCPCS: 36415; 82105

== ENCOUNTER → 2022-04-05 08:40 | Outpatient (CLI) | payer OTHER, SELFPAY ==
--- NOTE | 2022-04-05 08:44 | DI.US.S_ITS ---
PROCEDURE: US OB >= 14 WEEKS FETUS INDICATIONS: 20 week anatomy scan OUTSIDE/PRIOR DATING DATA: Last menstrual period (LMP): 11/15/21. LMP-based estimated date of delivery (BLAKE): 08/22/22. First dating scan (date and location): 01/17/22. Estimated date of delivery (BLAKE) from first dating scan: 08/22/22. TECHNIQUE: Real-time scanning was performed of the fetus, with image documentation and biometric measurements. Endovaginal scanning: not performed COMPARISON: None. FINDINGS: General: A single living intrauterine gestation is present. Presentation: Variable. Placenta: Placental position is posterior , without previa. Amniotic fluid index: 13.3 cm, normal range is 5-24 cm. Single deepest vertical pocket is 4.2 cm. heart rate: 153 beats per minute. Maternal cervical canal: 3.7 cm long. Normal lower limit is 2.5 cm. biometrics: Biparietal diameter: 4.6 cm, 19 weeks 5 days Head circumference: 17.3 cm, 19 weeks 6 days Abdominal circumference: 16.5 cm, 21 weeks 4 days Femur length: 3.3 cm, 20 weeks 2 days estimated gestational age: 20 weeks 1 day Composite gestational age from present scan: 20 weeks 3 days Estimated weight and percentile: 379 g, 82nd percentile Anatomic survey: Neuro: Ventricles are non-dilated at less than 10 mm. Cisterna magna is normal at 3-11 mm. Cerebellum is normal in size and morphology. Nuchal skin fold: Normal at less than 6 mm between 14-21 weeks gestational age. Face: Nose and lips, facial profile are normal. Spine: No evidence for spina bifida. Heart: 4-chambered heart is present, with normal ventricular outflow tracts. Diaphragm: Diaphragm is intact. Stomach: Left-sided stomach is present. Kidneys: No hydronephrosis. Normal is less than 5 mm in 2nd trimester, less than 7 mm in 3rd trimester. Cord: 3-vessel cord has orthotopic insertion. Bladder: Normal in size. Extremities: All 4 extremities identified. IMPRESSION: 1. Single living intrauterine . 2. Normal 2nd trimester anatomy survey. No anomalies detected at this time. We strive to produce accurate, complete, and clear reports of imaging services. To assist us in improving patient care, this report was composed using standard report templates and voice recognition software. Therefore, it may contain abnormal punctuation, insertions and/or omissions. Occasional wrong-word or sound-alike substitutions may occur. Though we review the report and make efforts to correct it, we do recommend that the report be read carefully in proper context to recognize any text inaccuracies. Dictated by: Fredy Wan M.D. on 04/05/2022 at 12:20 Approved by: Fredy Wan M.D. on 04/05/2022 at 12:28
== END ==
PROVIDERS: Referring Provider Obstetrics & Gynecology; Visit Provider Obstetrics & Gynecology
DX: Z34.82 Encounter for supervision of other normal pregnancy, second trimester (principal); Z3A.20 20 weeks gestation of pregnancy
CPT/HCPCS: 76811

== ENCOUNTER → 2022-05-11 14:30 | Outpatient (CLI) | payer OTHER, SELFPAY ==
[2022-05-11 17:57] LABS: Hematocrit 33.2 % (36-46); Hemoglobin 11.5 g/dL (12.0-16.0)
[2022-05-11 18:18] LABS: GTT (PREG) 1 Hour PP 50gm Dose 117 mg/dL (76-139)
== END ==
PROVIDERS: Referring Provider Obstetrics & Gynecology; Visit Provider Obstetrics & Gynecology
DX: O26.899 Other specified pregnancy related conditions, unspecified trimester (principal); Z3A.26 26 weeks gestation of pregnancy; Z67.91 Unspecified blood type, Rh negative
CPT/HCPCS: 36415; 82950; 85014; 85018; 86850

== ENCOUNTER 2022-07-16 00:57 | Observation (INO) | payer OTHER, SELFPAY ==
[2022-07-16] MEDS: LACTATED RINGERS 1,000 ML 500 ML IV (01:50)
[2022-07-16] MEDS: TERBUTALINE 1 MG/ML VIAL 0.25 MG SUBCUT (01:54)
== END 2022-07-16 04:16 | disposition home or self-care (01) ==
LOC: LABOR 01:01
PROVIDERS: Admitting Provider Obstetrics & Gynecology; Referring Provider Obstetrics & Gynecology; Visit Provider Obstetrics & Gynecology
DX: O36.8130 Decreased fetal movements, third trimester, not applicable or unspecified (principal); O47.03 False labor before 37 completed weeks of gestation, third trimester; Z3A.34 34 weeks gestation of pregnancy
CPT/HCPCS: 59025; 59050; 96360; 96372; G0378; G0379

== ENCOUNTER → 2022-07-26 10:17 | Outpatient (CLI) | payer OTHER, SELFPAY ==
[2022-07-27 11:17] LABS: Strep Grp B PCR NEG for Grp B Strep
== END ==
PROVIDERS: Visit Provider Specialist
DX: Z34.83 Encounter for supervision of other normal pregnancy, third trimester (principal); Z3A.36 36 weeks gestation of pregnancy
CPT/HCPCS: 87653

== ENCOUNTER 2022-08-17 06:04 | Inpatient (IN) | payer OTHER, SELFPAY ==
[2022-08-17 06:38] LABS: Add Manual Diff / Slide Review NO; Basophils Absolute Auto 100 /uL (0-100); Basophils Percent Auto 1.4 % (0-2); Eosinophils Absolute Auto 100 /uL (0-450); Eosinophils Percent Auto 1.9 % (2-4); Hematocrit 32.3 % (36-46); Hemoglobin 10.9 g/dL (12.0-16.0); Lymphocytes Absolute Auto 2500 /uL (1100-4500); Lymphocytes Percent Auto 31.1 % (25-40); Mean Corpuscular HGB Conc 33.7 % (30-36); Mean Corpuscular Hemoglobin 26.6 PG (26-34); Mean Corpuscular Volume 78.9 fL (80-100); Monocytes Absolute Auto 700 /uL (0-900); Monocytes Percent Auto 8.4 % (3-14); Neutrophils Absolute Auto 4600 /uL (1500-7000); Neutrophils Percent Auto 57.2 % (50-75); Platelet Count 247 X10^3/uL (150-400); Red Blood Cell Count 4.09 X10^6/uL (4.0-5.2); Red Cell Distribution Width 14.2 % (11.6-14.8)
[2022-08-17 06:44] VITALS: BP 107/64
--- NOTE | 2022-08-17 07:12 | PM.OBHP.1 ---
OB HPI Date/Time Date of admission: 08/17/22 Date Patient Seen: 08/17/22 Time Patient Seen: 07:12 History of Present Condition Chief complaint: IUP, 39+1 wks EGA, prior x 2 : 3 Para: 2 Estimated Date of Delivery: 08/23/22 Estimated Gestational Age (weeks): 39+1 Narrative: Christy Eid is a 32 year old , BLAKE 08/23/2022, admitted now at 39+ 1 weeks gestational age for repeat section. Her course has been uneventful with solid dating and appropriate milestones throughout. Patient is Rh negative. GBS is negative. Indications Operative indications ( section): previous uterine surgery History of Present care: good care Dating criteria: LMP confirmed by 1st trimester US Obstetrical complications: none Medical complications: none Preadmission Labs Blood type: A (-) negative -: Antibody screen: negative, GBS status: negative, HBsAG: negative, HIV: negative and RPR/VDLR: negative -: Chlamydia screen: not detected and Gonorrhea screen: not detected -: Rubella: immune and Varicella: immune HCT: 32.3 HCAB: negative PAP: Normal Quad screen: Normal (AFP testing is negative) Cell-free DNA: Low risk, male 1 hr GTT: 135 Prior (ies) History: Prior x2 Evaluation Evaluation Baseline heart rate: 135 Variability: Moderate (11-25) monitor accelerations: Present Monitor Decelerations: Absent [facility] Medical History (Updated 08/10/22 @ 11:13 by Ann Marie Najera MD) ADHD (~1992) Allergic rhinitis Anxiety (~2011) Depression (~2011) Fracture of 5th metatarsal Nasal septal deviation Nasal turbinate hypertrophy PTSD (post-traumatic stress disorder) (~2011) Surgical History (Updated 07/12/22 @ 09:32 by Dino Jose MD) Anesthesia History of appendectomy (~08/2015) History of section (~05/2013) History of rhinoplasty (~2020) Family History (Updated 03/08/22 @ 20:39 by Tammy Ball) Mother Diabetes mellitus Pancreatic cancer Grandmother Thyroid cancer Grandfather Lung cancer Social History marital status: number of children: 2 household members: spouse, children and other (foreign exchange 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 from [place]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) lives independently: Yes housing: house pets and animals: Yes education level: college (some college) occupational status: employed current occupational exposures/hazards: No special thien needs: No travel history: over 6 months ago seatbelt use: always helmet use: Yes water heater temp set < 120 deg: No (Will have adjust) working smoke detector in home: Yes fire extinguisher in home: Yes carbon monox detector in home: Yes firearms in home: Yes firearms unloaded and locked: Yes do you feel safe at home: Yes Smoking Status: Never smoker second hand exposure: No alcohol intake: former (rare glass of wine when not ) substance use type: marijuana (many years ago) during the past year weight has: increased > 10 lbs well-balanced diet: about half the time daily servings fruits/ve-1 caffeine: Yes (aware of 200mg limit) Type(s) of exercise: walking additional social history: Pt having problems recently w/ anxiety and depression. Has been off meds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. Recently having feelings of worthlessness and being overwhelmed, denies suicidal ideation. Discussed counseling (pt can access through [facility]), encouraged outdoors and interactive activities, Vitamin D supplementation, yoga/meditation. Pt believes this is a good starting point and will reach out if she needs more. Meds Home Medications and Allergies Home Medications Medication Instructions Recorded Confirmed Type prenat.vits,chasidy,ajx-udji-xrmdz 1 tab PO DAILY 12/29/21 08/17/22 History Allergies Allergy/AdvReac Type Severity Reaction Status Date / Time amoxicillin Allergy Rash Verified 08/17/22 06:43 cefaclor [From Ceclor] Allergy Rash Verified 08/17/22 06:43 Review of Systems Review of Systems Narrative: Problem-specific ROS positives included in HPI OB Exam Vital signs Blood Pressure: 107/64 Pulse Rate: 85 Respiratory Rate: 18 Temperature: 97.3 F HENMT Head: normal to inspection, normocephalic and atraumatic Eyes General: appearance normal, both eyes and all related structures Resp Effort & Inspection: normal respiratory effort and able to speak in complete sentences Auscultation: clear to auscultation bilaterally Cardio Rate: regular rate Rhythm: regular rhythm Heart Sounds: S1 normal, S2 normal and no murmurs Extremities Lower extremity: Yes normal to inspection GI Inspection: normal to inspection Palpation: Yes soft and Yes no hepatosplenomegaly Uterus Location (Fundal Height): 38 Estimated Weight (lbs): 8 Objective Labs 08/17/22 06:20 Labs: Laboratory Results - last 24 hr 08/17/22 06:20 WBC 8.0 RBC 4.09 Hgb 10.9 L Hct 32.3 L MCV 78.9 L MCH 26.6 MCHC 33.7 RDW 14.2 Plt Count 247 Neut % (Auto) 57.2 Lymph % (Auto) 31.1 [place] % (Auto) 8.4 Eos % (Auto) 1.9 L Baso % (Auto) 1.4 Neut # (Auto) 4600 Lymph # (Auto) 2500 [place] # (Auto) 700 Eos # (Auto) 100 Baso # (Auto) 100 Assessment and Plan Assessment and Plan Assessment and Plan narrative: ASSESSMENT 1. Intrauterine , 39+ 1 weeks gestational age 2. Prior section x2 3. Rh-negative status 4. GBS negative status PLAN 1. Admit for repeat section 2. See admission orders
[2022-08-17 07:18] VITALS: BP 107/64; PULSE 85; RESP 18; TEMP 36.3
--- NOTE | 2022-08-17 07:19 | PM.PREOP ---
Pre-operative Note Interval Note History & Physical reviewed/Exam performed by Physician: Yes Changes to H&P: No
--- NOTE | 2022-08-17 07:22 | SUR.OPER ---
Supine on Padded OR bed, head on pillow, safety belt at thigh, arms secured on padded arm boards at <90 degrees abduction. Bump under right buttock. Legs uncrossed with pillow under knees, gel pad to heels, tape over blanket to lower legs.
[2022-08-17] MEDS: LACTATED RINGERS 1,000 ML 999 ML IV ×2 (07:23→08:58)
[2022-08-17] MEDS: CLINDAMYCIN 900 MG/50 ML PIGGYBACK 50 MG IV (08:00)
[2022-08-17] MEDS: ACETAMINOPHEN IV 1,000 MG/100 ML VIAL 400 MG IV (08:05)
--- NOTE | 2022-08-17 08:42 | SUR.OPER ---
Pre operative heart tones 128. Baby boy born at 0827. Amniotic fluid clear. Placenta and cord blood delivered at 0828. Placenta and cord blood sent with L&D IWONA Ahumada.
[2022-08-17 09:21] VITALS: BP 111/71; PULSE 76; RESP 23; TEMP 36.6; O2SAT 98
--- NOTE | 2022-08-17 09:24 | P.OP_ITS ---
Operative Date/Time/Diagnoses Date of procedure: 08/17/22 Time of procedure: 08:15 Pre-op diagnosis: Intrauterine gestation, flores, 39+1 weeks EGA Previous section x 2 Post-op diagnosis: same Procedure & Clinicians Procedure: Repeat section, low transverse cervical Same procedure as scheduled: Yes Indications: Christy Eid is a 32 year old , BLAKE 08/23/2022, admitted now at 39+ 1 weeks gestational age for repeat section.? Her course has been uneventful with solid dating and appropriate milestones throughout.? Patient is Rh negative.? GBS is negative. Surgeon: Dino Jose Academic Services Professional: Irina Ashton Reason for Academic Services Professional: Academic Services Professional required for the safe, effective, and timely completion of this surgery. Anesthesia Type: Spinal Operative Notes Findings: Viable male BW 4250 gms. (9 lbs. 5.9 oz.), Apgars 9/9, delivered from the vertex presentation. Normal gravid anatomy. Closure Type: primary Specimen(s): cord blood Intraoperative meds administered: Acetaminophen, Ketorolac and Pitocin Applied: Catheter Estimated Blood Loss (mL): 800 Blood products transfused: none Procedure in detail: With her informed written consent, the patient was taken to the operating room and placed in the supine position for a repeat section procedure, for the indication(s) above. The abdomen was prepped and draped in the usual manner for section and a pre-surgical timeout was taken per [facility] OR protocol. Once effective anesthesia was confirmed, a 15 cm transverse Pfannen stiel incision was made in the skin and taken down through the subcutaneous tissues to the deep fascia. The deep fascia was incised transversely, the rectus abdominal eyes bluntly and sharply, and the peritoneal cavity entered without difficulty. The lower uterine segment was visualized and the position/presentation palpated. A transverse incision at or above the vesicouterine reflection was made with Metzenbaum scissors and transverse hysterotomy performed near the midline. Amniotomy revealed clear fluid. The incision was extended bilaterally with digital traction and the was delivered without difficulty from the vertex presentation. The was vigorous and cord clamping delayed for 60 seconds. The placenta was delivered intact using gentle cord traction and fundal massage.The uterine cavity was then cleared of any clot/debris first with a sloppy wet lap tape followed by a dry lap tape. Ring forceps were then applied to the angles and the midline of the incised DEVON. A primary closure of the uterus was then accomplished with #1 CCGS in a running interlocking stitch followed by a 2nd layer of #1 CCGS in a running interlocking imbricating stitch. One additional sutures was/were required to achieve complete hemostasis. Once pelvic hemostasis was assured, the bladder flap and anterior peritoneum were closed with a running 2-0 Vicryl suture and the fascia closed with #1 Vicryl in a running stitch initiated at both angles and tying separately near the midline. The subcutaneous tissues were reapproximated with 2-0 plain catgut suture using inverted interrupted stitches. The skin edges were then brought together with 4-0 Monocryl in a subcuticular closure and the incision was reinforced with 1 Steri-Strips. An appropriate compression dressing was applied and the patient transferred to PACU for recovery and subsequent transfer to the Center for recuperation. Complications: none Baby 1: Gender: Male Presentation: vertex Position: Left Occiput Anterior Placental Delivery Description: Spontaneous Cord Vessel Description: 3 Vessels score (1 min): 9 score (5 min): 9 weight: 9 lb 5.914 oz Post-operative Condition: stable Disposition: PACU Aftercare: routine postop
[2022-08-17 09:26] VITALS: BP 108/48; PULSE 74; RESP 17; TEMP 36.7; O2SAT 96
[2022-08-17 09:31] VITALS: BP 110/45; PULSE 71; RESP 20; TEMP 36.7; O2SAT 97
[2022-08-17 09:36] VITALS: BP 115/73; PULSE 73; RESP 14; TEMP 36.7; O2SAT 96
[2022-08-17] MEDS: BUTORPHANOL 1 MG/ML VIAL 0.5 MG IV (13:29)
[2022-08-17] MEDS: KETOROLAC 30 MG/ML VIAL IV ×2 (15:11→21:10)
[2022-08-17] MEDS: DOCUSATE 100 MG CAPSULE PO (21:10)
[2022-08-17] MEDS: ACETAMINOPHEN 325 MG TABLET 650 MG PO (21:14)
[2022-08-18 01:26] VITALS: BP 112/71; PULSE 80; RESP 16; TEMP 37.1
[2022-08-18] MEDS: ACETAMINOPHEN 325 MG TABLET 650 MG PO ×3 (04:27→17:15)
[2022-08-18] MEDS: KETOROLAC 30 MG/ML VIAL IV (04:28)
[2022-08-18 07:26] LABS: Add Manual Diff / Slide Review NO; Basophils Absolute Auto 0 /uL (0-100); Basophils Percent Auto 0.4 % (0-2); Eosinophils Absolute Auto 200 /uL (0-450); Eosinophils Percent Auto 1.9 % (2-4); Hematocrit 28.2 % (36-46); Hemoglobin 9.5 g/dL (12.0-16.0); Lymphocytes Absolute Auto 1800 /uL (1100-4500); Lymphocytes Percent Auto 18.4 % (25-40); Mean Corpuscular HGB Conc 33.7 % (30-36); Mean Corpuscular Hemoglobin 26.5 PG (26-34); Mean Corpuscular Volume 78.6 fL (80-100); Monocytes Absolute Auto 1000 /uL (0-900); Monocytes Percent Auto 9.9 % (3-14); Neutrophils Absolute Auto 6900 /uL (1500-7000); Neutrophils Percent Auto 69.4 % (50-75); Platelet Count 210 X10^3/uL (150-400); Red Blood Cell Count 3.59 X10^6/uL (4.0-5.2); Red Cell Distribution Width 14.4 % (11.6-14.8); White Blood Cell Count 9.9 X10^3/uL (4.5-11.0)
[2022-08-18] MEDS: PRENATAL VIT,CALC/IRON/FOLIC 1 TABLET 1 TAB PO (08:59)
[2022-08-18] MEDS: DOCUSATE 100 MG CAPSULE PO (08:59)
--- NOTE | 2022-08-18 09:57 | PM.OBPN.1 ---
Subjective - OB Subjective Patient comments: no complaints and pain well controlled baby status: doing well feeding status: exclusively breast feeding Narrative: Patient has done well overnight. Pain is well controlled and bleeding is minimal. Tolerating a regular diet, ambulating to bathroom, + flatus Date Patient Seen: 08/18/22 Time Patient Seen: 09:57 Exam Vital Signs (past 8 hours): Oxygen Delivery Method Room Air Const General: cooperative and comfortable Nutritional Appearance: average body habitus Orientation: alert and oriented x3 HENMT Head: normal to inspection, atraumatic and abrasion Ears: hearing grossly normal bilaterally Face and sinus: face symmetric Eyes General: appearance normal, both eyes and all related structures Conjunctivae: conjunctivae normal Sclera: sclerae normal EOM: EOM intact bilaterally Neck Neck: normal visual inspection Resp Effort & Inspection: normal respiratory effort and able to speak in complete sentences Auscultation: clear to auscultation bilaterally Cardio Rate: regular rate Rhythm: regular rhythm Heart Sounds: S1 normal, S2 normal and no murmurs GI Inspection: normal to inspection and incision (Surgical dressing clean and dry) Palpation: soft, no hepatosplenomegaly and tender (Mild, diffuse postsurgical tenderness) Auscultation: normal bowel sounds External Female Exam: other (No significant bleeding noted) Extrem General: no calf tenderness Psych Appearance: grossly normal Mental Status: mental status grossly normal Speech and Movement: speech and movement normal Mood: congruent mood Affect: normal affect Attitude: cooperative Thought Process: normal Thought Content: normal Judgment: judgment good Objective Labs 08/18/22 07:02 Labs: Laboratory Results - last 24 hr 08/18/22 07:02 WBC 9.9 RBC 3.59 L Hgb 9.5 L Hct 28.2 L MCV 78.6 L MCH 26.5 MCHC 33.7 RDW 14.4 Plt Count 210 Neut % (Auto) 69.4 Lymph % (Auto) 18.4 L [place] % (Auto) 9.9 Eos % (Auto) 1.9 L Baso % (Auto) 0.4 Neut # (Auto) 6900 Lymph # (Auto) 1800 [place] # (Auto) 1000 H Eos # (Auto) 200 Baso # (Auto) 0 Assessment & Plan Time Spent With Patient Time: Total time spent is greater than 50% in coordination of care (as documented) at patient's floor/unit and/or counseling patient: Time with patient: 15-24 minutes
[2022-08-18] MEDS: IBUPROFEN 600 MG TABLET PO ×2 (10:44→17:16)
[2022-08-18] MEDS: RHO(D) IMMUNE GLOBULIN 1,500 UNIT SYRINGE 1500 UNIT IM (13:12)
--- NOTE | 2022-08-18 18:14 | P.DS_ITS ---
Discharge Providers Provider Date of admission: 08/17/22 06:04 Discharge Date: 08/18/22 Primary care physician: Lydia CORREIA Provider Consults: 08/17/22 09:54 Consult to Director Of Scout Work Routine Comment: Discharge provider: Dino Jose MD Summary Hospital Course Date Patient Seen: 08/18/22 Time Patient Seen: 18:14 Diagnoses: Intrauterine gestation, 39+ 1 weeks gestational age, delivered by repeat section Hospital Course: Christy Eid is a 32 year old , BLAKE 08/23/2022, admitted now at 39+ 1 weeks gestational age for repeat section.? Her course has been uneventful with solid dating and appropriate milestones throughout.? Patient is Rh negative.? GBS is negative.? On 08/17/2022 the patient underwent an uneventful repeat section productive of a viable male infant BW 4250 gms. (9 lbs. 5.9 oz.), Apgars 9/9, delivered from the vertex presentation. ?Details of the procedure well summarized on my operative note of that date.? Following delivery the patient has done exceptionally well with prompt return of bowel and bladder function, she is ambulating independently, tolerating regular diet, and her pain is well controlled with oral pain medications.? She will be discharged at this time to home in an afebrile normotensive condition after counseling regarding precautionary symptoms, limitations activity, medications, and plans for follow-up which will be in 1 week for an incision check.? Medications at discharge will include resumption of all pre delivery medications as well as ibuprofen 600 mg p.o. q.6 hours as needed for pain. Peripartum Data Infant Delivery Method: Section Laceration Description: None Episiotomy description: None complications: none 1: Gender: Male Disposition of : home Status at Discharge Cognitive/behavioral status at discharge: oriented Functional status at discharge: independent ambulation Overall status at discharge: patient is progressing back to baseline Time Spent with Patient Time attestation: Total time spent providing and/or coordinating discharge services: Time spent: Less than 30 minutes Objective Labs 08/18/22 07:02 Labs: Laboratory Results - last 24 hr 08/18/22 08/18/22 07:02 07:02 WBC 9.9 RBC 3.59 L Hgb 9.5 L Hct 28.2 L MCV 78.6 L MCH 26.5 MCHC 33.7 RDW 14.4 Plt Count 210 Neut % (Auto) 69.4 Lymph % (Auto) 18.4 L [place] % (Auto) 9.9 Eos % (Auto) 1.9 L Baso % (Auto) 0.4 Neut # (Auto) 6900 Lymph # (Auto) 1800 [place] # (Auto) 1000 H Eos # (Auto) 200 Baso # (Auto) 0 Maternal Bleed Negative Exam Vital Signs (past 8 hours): Oxygen Delivery Method Room Air Const General: cooperative and comfortable Nutritional Appearance: average body habitus Orientation: alert and oriented x3 HENMT Head: normal to inspection, atraumatic and abrasion Ears: hearing grossly normal bilaterally Face and sinus: face symmetric Eyes General: appearance normal, both eyes and all related structures Conjunctivae: conjunctivae normal Sclera: sclerae normal EOM: EOM intact bilaterally Neck Neck: normal visual inspection Resp Effort & Inspection: normal respiratory effort and able to speak in complete sentences Auscultation: clear to auscultation bilaterally Cardio Rate: regular rate Rhythm: regular rhythm Heart Sounds: S1 normal, S2 normal and no murmurs GI Inspection: normal to inspection and incision (Compression dressing removed, Aquacel applied) Palpation: soft, no hepatosplenomegaly and tender (Mild, diffuse postsurgical tenderness) External Female Exam: other (No significant bleeding noted) Extrem General: no calf tenderness Psych Appearance: grossly normal Mental Status: mental status grossly normal Speech and Movement: speech and movement normal Mood: congruent mood Affect: normal affect Attitude: cooperative Thought Process: normal Thought Content: normal Judgment: judgment good Discharge Plan Discharge Plan Patient Disposition: Home Provider Discharge Comment: Please review the written instructions you received when you were discharged from the hospital. Your follow-up appointment will be scheduled for 1 week after your delivery and I look forward to seeing you then. If however in the meanwhile you have any problems, questions, or other issues, please contact me either through the office phone at [phone], or via the patient portal. Discharge orders & Medications Prescriptions: New ibuprofen 600 mg Tablet 600 mg PO Q6H Qty: 30 2RF Continued prenat.vits,chasidy,vvk-frkq-lthbm Tablet 1 tab PO DAILY No Action sertraline [Zoloft] 50 mg tablet 50 mg PO DAILY Qty: 30 12RF Rx Instructions: Take 1/2 tab daily x 6 days then 1 tab daily Follow up/Referrals: ProviderLydia [Primary Care Provider] - Dino Jose MD [Physician] - (Appointment with in 1 week for removal of incision dressing, Sunday at 8:30AM and Wednesday, October 04 at 10:30 AM. ) Discharge Health Status Multidrug resistant organism: No MDRO Diet/Activity/Treatments Diet: Diet as Tolerated Activity: As tolerated Other treatments: [id number] Tylenol may be used for additional pain relief. Zmnu-cyo-klbzyjx stool softeners and/or MiraLax may be used as needed for constipation. Skin/Wound/Dressing Care Report to your healthcare provider any signs of infection, such as:: chills, fever, increased pain, unusual drainage and unusual redness Dressing: Dressing will be removed at the time of your one-week postop visit. Visit Report/Discharge Packet Instructions: DI for , DI for Prescription Opioid Use Discharge Data Primary Care Provider: ProviderLydia Discharges patient from system. Discharge Date/Time: 08/18/22 19:32
[2022-08-18] MEDS: MEASLES,MUMPS,RUBELLA VACC/PF 0.5 ML VIAL SUBCUT (18:22)
== END 2022-08-18 19:32 | disposition home or self-care (01) | DRG 788 ==
PROVIDERS: Specialist; Admitting Provider Obstetrics & Gynecology; Referring Provider Obstetrics & Gynecology; Visit Provider Obstetrics & Gynecology
PROC: 10D00Z1 Extraction of Products of Conception, Low, Open Approach (ICD-10-PCS; CPT 59514; principal; 2022-08-17 07:45)
DX: O34.211 Maternal care for low transverse scar from previous cesarean delivery (principal); Z3A.39 39 weeks gestation of pregnancy; Z37.0 Single live birth
CPT/HCPCS: 36415; 59025; 59050; 59510; 59514; 85025; 85461; 86850; 86900; 86901; G0379; J0131; J0595; J1885; J2274; J2590; J2704; J2790

== ENCOUNTER → 2023-04-23 10:13 | Outpatient (CLI) | payer OTHER, SELFPAY ==
--- NOTE | 2023-04-23 10:14 | DI.US.S_ITS ---
PROCEDURE: US OB <= 14 WEEKS FETUS INDICATIONS: Dating and viability OUTSIDE/PRIOR DATING DATA: Last menstrual period (LMP): 02/23/2023?. LMP-based estimated date of delivery (BLAKE): 11/30/2023?. First dating scan (date and location): 04/23/2023. Estimated date of delivery (BLAKE) from first dating scan: 12/13/2023. The calculations are made using the ultrasound BLAKE of 12/13/2023. TECHNIQUE: Real-time scanning was performed of the fetus and maternal pelvic organs, with image documentation. Endovaginal scanning was also performed to better visualize the fetus and maternal ovaries. COMPARISON: None. FINDINGS: Embryo: [place]-rump length measuring 0.7 cm, gestational age 6 weeks 4 days Heart rate: 143 bpm A yolk sac is seen. Small perigestational hemorrhage measuring 1.6 x 1.5 x 1.2 cm. Maternal organs: Right ovary is not identified. Left corpus luteum measuring 1.4 cm. IMPRESSION: 1. [place] living intrauterine at 6 weeks 4 days based on today's crown rump length. 2. Small perigestational hemorrhage. We strive to produce accurate, complete, and clear reports of imaging services. To assist us in improving patient care, this report was composed using standard report templates and voice recognition software. Therefore, it may contain abnormal punctuation, insertions and/or omissions. Occasional wrong-word or sound-alike substitutions may occur. Though we review the report and make efforts to correct it, we do recommend that the report be read carefully in proper context to recognize any text inaccuracies. Dictated by: Tommy Ann M.D. on 04/23/2023 at 12:29 Approved by: Tommy Ann M.D. on 04/23/2023 at 12:33
== END ==
PROVIDERS: Referring Provider Obstetrics & Gynecology; Visit Provider Obstetrics & Gynecology
DX: O46.8X1 Other antepartum hemorrhage, first trimester; Z3A.01 Less than 8 weeks gestation of pregnancy
CPT/HCPCS: 76801

== ENCOUNTER → 2023-05-29 10:18 | Outpatient (CLI) | payer OTHER, SELFPAY ==
[2023-05-29 11:13] LABS: Specimen Label NATERA
[2023-05-29 11:43] LABS: Add Manual Diff / Slide Review NO; Basophils Absolute Auto 0 /uL (0-100); Basophils Percent Auto 0.2 % (0-2); Eosinophils Absolute Auto 100 /uL (0-450); Eosinophils Percent Auto 0.8 % (2-4); Hematocrit 37.7 % (36-46); Lymphocytes Absolute Auto 2000 /uL (1100-4500); Lymphocytes Percent Auto 22.3 % (25-40); Mean Corpuscular HGB Conc 34.5 % (30-36); Mean Corpuscular Hemoglobin 28.4 PG (26-34); Mean Corpuscular Volume 82.2 fL (80-100); Monocytes Absolute Auto 600 /uL (0-900); Monocytes Percent Auto 6.9 % (3-14); Neutrophils Absolute Auto 6300 /uL (1500-7000); Neutrophils Percent Auto 69.8 % (50-75); Platelet Count 227 X10^3/uL (150-400); Red Blood Cell Count 4.58 X10^6/uL (4.0-5.2); Red Cell Distribution Width 13.5 % (11.6-14.8)
[2023-05-29 12:24] LABS: Hepatitis B Surface Antigen NEGATIVE s/c (NEGATIVE); Rubella Antibody IgG 92.7 IU/mL (>15)
[2023-05-29 13:06] LABS: HIV 1 & 2 Ab/Ag 4th Gen Combo NEGATIVE (NEGATIVE); Hep C Virus Ab w/Reflex Quant NEGATIVE s/c (NEGATIVE)
[2023-05-29 14:38] LABS: Appearance Urine UA CLEAR; Bilirubin Urine UA NEGATIVE (NEGATIVE); Color Urine UA YELLOW; Glucose Urine UA NEGATIVE (Negative); Ketones Urine UA TRACE (NEGATIVE); Leukocyte Esterase Urine UA NEGATIVE (NEGATIVE); Nitrite Urine UA NEGATIVE (Negative); Occult Blood Urine UA NEGATIVE (Negative); Protein Urine UA TRACE (Negative); Urobilinogen Urine UA 0.2 E.U./dL (0.2)
[2023-05-29 14:40] LABS: pH Urine UA 5.5 (4.5-8.0)
[2023-05-30 05:52] LABS: RPR Screen Non Reactive (Non Reactive)
[2023-05-30 11:36] LABS: Varicella IgG Antibody 425 index (Immune >165)
== END ==
LOC: LAB 10:19
PROVIDERS: Referring Provider Obstetrics & Gynecology; Visit Provider Obstetrics & Gynecology
DX: Z34.91 Encounter for supervision of normal pregnancy, unspecified, first trimester (principal)
CPT/HCPCS: 36415; 80055; 81003; 86787; 86803; 86850; 86900; 86901; 87086; 87389

== ENCOUNTER → 2023-06-26 10:20 | Outpatient (CLI) | payer OTHER, SELFPAY ==
[2023-06-28 21:07] LABS: AFP Value 48.5 ng/mL (.); Gest Age on Col Date 18.1 weeks (.); Insulin Dep Diabetes No (.); OSBR Risk 1IN 6110 (.); Results Report (.); Test Results *Screen Negative* (.)
== END ==
PROVIDERS: Referring Provider Obstetrics & Gynecology; Visit Provider Obstetrics & Gynecology
DX: Z34.82 Encounter for supervision of other normal pregnancy, second trimester (principal); Z3A.15 15 weeks gestation of pregnancy
CPT/HCPCS: 36415; 82105

== ENCOUNTER → 2023-07-24 12:09 | Outpatient (CLI) | payer OTHER, SELFPAY ==
--- NOTE | 2023-07-24 12:10 | DI.US.S_ITS ---
PROCEDURE: US OB >= 14 WEEKS FETUS INDICATIONS: anatomy scan OUTSIDE/PRIOR DATING DATA: Last menstrual period (LMP): February 23, 2023. LMP-based estimated date of delivery (BLAKE): November 30, 2023. First dating scan (date and location): April 23, 2023. Estimated date of delivery (BLAKE) from first dating scan: December 13, 2023. The calculations are made using the ultrasound BLAKE of December 13, 2023. TECHNIQUE: Real-time scanning was performed of the fetus, with image documentation and biometric measurements. Endovaginal scanning: Not performed COMPARISON: [facility], OB <= 14 WEEKS FETUS, 04/23/2023, 10:50. FINDINGS: General: A single living intrauterine gestation is present. Presentation: Vertex. Placenta: Placental position is anterior , without previa. Amniotic fluid index: 11.3 cm, normal range is 5-24 cm. Single deepest vertical pocket is 3.1 cm. heart rate: 143 beats per minute. Maternal cervical canal: 3.9 cm long. Normal lower limit is 2.5 cm. biometrics: Biparietal diameter: 4.8 cm, 20 weeks and 4 days Head circumference: 19.0 cm, 21 weeks and 2 days Abdominal circumference: 15.7 cm, 20 weeks and 6 days Femur length: 3.1 cm, 19 weeks and 5 days Clinically estimated gestational age: 19 weeks and 5 days Composite gestational age from present scan: 20 weeks and 4 days Estimated weight and percentile: 351 g, 83rd percentile Anatomic survey: Neuro: Ventricles are non-dilated at less than 10 mm. Cisterna magna is normal at 3-11 mm. Cerebellum is normal in size and morphology. Nuchal skin fold: Normal at less than 6 mm between 14-21 weeks gestational age. Face: Nose and lips, facial profile are normal. Spine: No evidence for spina bifida. Heart: 4-chambered heart is present, with normal ventricular outflow tracts. Diaphragm: Diaphragm is intact. Stomach: Left-sided stomach is present. Kidneys: No hydronephrosis. Normal is less than 5 mm in 2nd trimester, less than 7 mm in 3rd trimester. Cord: 3-vessel cord has orthotopic insertion. Bladder: Normal in size. Extremities: All 4 extremities identified. IMPRESSION: Single living intrauterine gestation with estimated sonographic gestational age of approximately 20 weeks and 4 days versus approximately 19 weeks and 5 days based off initial dating. Normal interval growth has occurred. Estimated weight of approximately 351 g which correlates with the 83rd percentile based off gestational age. Otherwise, normal anatomy screening survey. We strive to produce accurate, complete, and clear reports of imaging services. To assist us in improving patient care, this report was composed using standard report templates and voice recognition software. Therefore, it may contain abnormal punctuation, insertions and/or omissions. Occasional wrong-word or sound-alike substitutions may occur. Though we review the report and make efforts to correct it, we do recommend that the report be read carefully in proper context to recognize any text inaccuracies. Dictated by: Noah Dan M.D. on 07/24/2023 at 20:01 Approved by: Noah Dan M.D. on 07/24/2023 at 20:05
== END ==
PROVIDERS: Referring Provider Obstetrics & Gynecology; Visit Provider Obstetrics & Gynecology
DX: Z34.82 Encounter for supervision of other normal pregnancy, second trimester (principal); Z3A.20 20 weeks gestation of pregnancy
CPT/HCPCS: 76811

== ENCOUNTER → 2023-09-14 10:08 | Outpatient (CLI) | payer OTHER, SELFPAY ==
[2023-09-14 12:57] LABS: Hematocrit 31.5 % (36-46); Hemoglobin 10.9 g/dL (12.0-16.0)
[2023-09-14 13:28] LABS: GTT (PREG) 1 Hour PP 50gm Dose 146 mg/dL (76-139)
== END ==
PROVIDERS: Referring Provider Obstetrics & Gynecology; Visit Provider Obstetrics & Gynecology
DX: O26.899 Other specified pregnancy related conditions, unspecified trimester (principal); Z3A.26 26 weeks gestation of pregnancy; Z67.91 Unspecified blood type, Rh negative
CPT/HCPCS: 36415; 82950; 85014; 85018; 86850

== ENCOUNTER → 2023-09-27 09:48 | Outpatient (CLI) | payer OTHER, SELFPAY ==
[2023-09-27 13:19] LABS: Glucose Tol Interp,Gestational INTERPRETATION
[2023-09-27 20:33] LABS: Glucose Fasting Gestational 96 mg/dL (76-95)
[2023-09-27 21:09] LABS: Glucose 2 Hour Gest 106 mg/dL (76-155)
[2023-09-28 12:54] LABS: Glucose 3 Hour Gest 84 mg/dL (76-140)
[2023-09-28 13:31] LABS: Glucose 1 Hour Gest 170 mg/dL (76-180)
== END ==
PROVIDERS: Referring Provider Obstetrics & Gynecology; Visit Provider Obstetrics & Gynecology
DX: O99.810 Abnormal glucose complicating pregnancy (principal)
CPT/HCPCS: 36415; 82951; 82952

== ENCOUNTER → 2023-11-02 15:47 | Outpatient (CLI) | payer OTHER, SELFPAY ==
[2023-11-02 16:47] LABS: Alanine Aminotransferase 9 IU/L (<35); Albumin 3.8 g/dL (3.5-5.0); Albumin Globulin Ratio 1.2 (1.0-2.8); Alkaline Phosphatase 147 U/L (38-126); Aspartate Aminotransferase 15 IU/L (14-36); BUN Creatinine Ratio 18.4 (6-22); Bilirubin Total 0.6 mg/dL (0.2-1.3); Blood Urea Nitrogen 9 mg/dL (7-17); Calcium 9.1 mg/dL (8.4-10.2); Carbon Dioxide 22 mmol/L (22-32); Chloride 107 mmol/L (98-107); Estimated Glomerular Filt Rate > 60 mL/min (>60); Globulin 3.2 g/dL (1.7-4.1); Glucose 89 mg/dL (70-100); HEMOLYSIS < 15 (0-50); Potassium 3.8 mmol/L (3.4-5.1); Sodium 135 mmol/L (137-145)
== END ==
PROVIDERS: Referring Provider Obstetrics & Gynecology; Visit Provider Obstetrics & Gynecology
DX: O99.713 Diseases of the skin and subcutaneous tissue complicating pregnancy, third trimester (principal); L28.2 Other prurigo
CPT/HCPCS: 80053; 82239

== ENCOUNTER → 2023-11-21 11:05 | Outpatient (CLI) | payer OTHER, SELFPAY ==
[2023-11-22 11:23] LABS: Strep Grp B PCR NEG for Grp B Strep
== END ==
PROVIDERS: Visit Provider Obstetrics & Gynecology
DX: Z34.83 Encounter for supervision of other normal pregnancy, third trimester (principal); Z36.85 Encounter for antenatal screening for Streptococcus B; Z3A.36 36 weeks gestation of pregnancy
CPT/HCPCS: 87653

== ENCOUNTER 2023-11-27 00:09 | Inpatient (IN) | payer OTHER, SELFPAY ==
[2023-11-27] MEDS: LACTATED RINGERS 1,000 ML 1000 ML IV (01:10)
[2023-11-27 02:28] LABS: Appearance Urine UA CLEAR; Bilirubin Urine UA 1+ (NEGATIVE); Color Urine UA YELLOW; Glucose Urine UA NEGATIVE (Negative); Ketones Urine UA TRACE (NEGATIVE); Leukocyte Esterase Urine UA NEGATIVE (NEGATIVE); Nitrite Urine UA NEGATIVE (Negative); Occult Blood Urine UA NEGATIVE (Negative); Protein Urine UA 1+ (Negative); Specific Gravity Urine UA >=1.030 (1.000-1.035)
[2023-11-27 02:31] LABS: Bacteria Urine Few (2-10); Culture Indicated Urine Specimen Cultured; Ictotest Urine Negative (Negative); RBC Urine None Seen (0-5/HPF); Squamous Epithelial Cell Urine 0-1 /HPF (0-5/HPF); Urine Volume 10mL (spun); WBC Urine 1-5/HPF (0-5/HPF)
[2023-11-27 03:05] LABS: Add Manual Diff / Slide Review NO; Basophils Absolute Auto 0 /uL (0-100); Basophils Percent Auto 0.2 % (0-2); Eosinophils Absolute Auto 100 /uL (0-450); Eosinophils Percent Auto 1.6 % (2-4); Hematocrit 30.4 % (36-46); Hemoglobin 10.1 g/dL (12.0-16.0); Lymphocytes Absolute Auto 1900 /uL (1100-4500); Lymphocytes Percent Auto 22.2 % (25-40); Mean Corpuscular HGB Conc 33.3 % (30-36); Mean Corpuscular Hemoglobin 25.4 PG (26-34); Mean Corpuscular Volume 76.4 fL (80-100); Monocytes Absolute Auto 400 /uL (0-900); Monocytes Percent Auto 4.3 % (3-14); Neutrophils Absolute Auto 6000 /uL (1500-7000); Neutrophils Percent Auto 71.7 % (50-75); Platelet Count 311 X10^3/uL (150-400); Red Blood Cell Count 3.99 X10^6/uL (4.0-5.2); Red Cell Distribution Width 15.4 % (11.6-14.8); White Blood Cell Count 8.4 X10^3/uL (4.5-11.0)
--- NOTE | 2023-11-27 03:25 | PM.OBHP.IH.1 ---
OB HPI Date/Time Date of admission: 11/27/23 Date Patient Seen: 11/27/23 Time Patient Seen: 03:25 History of Present Condition Chief complaint: Labor BLAKE Calculator Estimated Delivery Date Method Current WG Current Estimate 12/13/23 Ultrasound #1 37w 5d Other Estimates 11/30/23 LMP (Uncertain) 39w 4d Estimated Gestational Age (weeks): 37w5d : 4 Para: 3 Narrative: 33yo at 37w5d here for progressively worsening contractions. Pt reports contractions starting around 12am, no vaginal bleeding or LOF. She states the contractions are getting stronger. The pts has been uncomplicated. care: good care, initiated at week # (11) and pounds weight gain (no significant) Dating criteria OB: based on 1st trimester US only Ultrasounds: normal 1st trimester US and normal mid trimester US Obstetrical complications: none Medical complications OB: none Indications Operative indications ( section): previous uterine surgery Preadmission Labs Last OB Lab Results: Blood Type A Negative 05/29/23 10:38 Antibody Screen Negative 09/14/23 11:55 Hct 30.4 % (36-46) L 11/27/23 01:10 Hgb 10.1 g/dL (12.0-16.0) L 11/27/23 01:10 Hep Bs Antigen Negative s/c (NEGATIVE) 05/29/23 10:38 Hepatitis C Antibody Negative s/c (NEGATIVE) 05/29/23 10:38 Rubella Antibody 92.7 IU/mL (>15) 05/29/23 10:38 VZV IgG Antibody 425 index (Immune >165) 05/29/23 10:38 Glucose 1 Hr 50 gm 146 mg/dL (76-139) H 09/14/23 11:55 Group B Strep (PCR) Neg for grp b strep 11/21/23 11:05 Glucose Tolerance Testing: Fasting (96), 1 hr (170), 2 hr (106) and 3 hr (84) -: Chlamydia screen: negative, Gonorrhea screen: negative and Urine: negative Genetic Screens: Cell-free DNA: Normal and Alpha-fetoprotein: Normal External Labs -: Urine: negative Prior (ies) Past Pregnancies Del. Date GA/Weeks Labor Lgth Wt Sex Route Outcome Anesthesia Place Delv Breastfeed Preg Comp Name 06/06/13 39 7 lb 9 oz Female live - full term [place], [place] 6 months none Odalys 05/14/16 40 11 9 lb 1 oz Female vaginal live - full term [place], [place] 6-7 months none Yulissa 08/17/22 39 9 lb 6 oz Male live - full term [facility] 6 months none Luke Delivery Date: 06/06/13 Last Updated by: Eugenia Jones RN Planned C/S for breech Delivery Date: 05/14/16 Last Updated by: Eugenia Jones RN severe depression required hospitalization Evaluation Evaluation Baseline heart rate: 130 Variability: Moderate (11-25) monitor accelerations: Present Monitor Decelerations: Absent Status: Category l Dilation (cm): 3 Effacement (%): 50 station: -2 [facility] Medical History (Updated 11/01/23 @ 15:36 by Dino Jose MD) Contact dermatitis and other eczema, due to unspecified cause PTSD (post-traumatic stress disorder) (~2011) ADHD (~1992) Fracture of 5th metatarsal Nasal turbinate hypertrophy Nasal septal deviation Depression (~2011) Anxiety (~2011) Allergic rhinitis Surgical History (Updated 05/29/23 @ 10:14 by Dino Jose MD) Anesthesia History of rhinoplasty (~2020) History of section (~05/2013) History of appendectomy (~08/2015) Family History (Updated 03/08/22 @ 20:39 by Tammy Ball) Mother Diabetes mellitus Pancreatic cancer Grandmother Thyroid cancer Grandfather Lung cancer Social History marital status: number of children: 3 household members: spouse, children and other (foreign exchange 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 from [place]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) lives independently: Yes caregiver/support person: Yes housing: house pets and animals: Yes (1 cat, 1 dog) education level: college (some college) occupational status: previously employed current occupational exposures/hazards: No special thien needs: No travel history: over 6 months ago seatbelt use: always helmet use: Yes water heater temp set < 120 deg: No (Will have adjust) working smoke detector in home: Yes fire extinguisher in home: Yes carbon monox detector in home: Yes firearms in home: Yes firearms unloaded and locked: Yes do you feel safe at home: Yes Smoking Status: Never smoker second hand exposure: Yes ( vapes (not around pt)) alcohol intake: former (rare glass of wine when not ) substance use type: does not use during the past year weight has: increased > 10 lbs (son is only ~8 months old) well-balanced diet: about half the time daily servings fruits/ve-4 (mostly fruit) caffeine: Yes (1 cup coffee or soft drink/day) Type(s) of exercise: walking additional social history: Pt having problems recently w/ anxiety and depression. Has been off meds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. Recently having feelings of worthlessness and being overwhelmed, denies suicidal ideation. Discussed counseling ([facility]), encouraged outdoors and interactive activities, Vitamin D supplementation, yoga/meditation. Pt believes this is a good starting point and will reach out if she needs more. Meds Home Medications and Allergies Home Medications Medication Instructions Recorded Confirmed Type prenat.vits,chasidy,vgi-vdpz-iaxxr 1 tab PO DAILY 12/29/21 11/21/23 History hydroxyzine HCl 25 mg tablet 25 mg PO QID PRN itching #30 tabs 11/01/23 11/21/23 Rx Allergies Allergy/AdvReac Type Severity Reaction Status Date / Time amoxicillin Allergy Mild Rash Verified 11/21/23 11:04 cefaclor [From Ceclor] Allergy Mild Rash Verified 11/21/23 11:04 OB Exam Resp Effort & Inspection: normal respiratory effort Auscultation: clear to auscultation bilaterally Cardio Rate: regular rate Rhythm: regular rhythm Heart Sounds: S1 normal, S2 normal and no murmurs GI Inspection: non-distended Palpation: Yes soft and No tender Presentation: vertex Objective Labs 11/27/23 01:10 Labs: Laboratory Results - last 24 hr 11/27/23 11/27/23 11/27/23 01:10 01:50 01:50 WBC 8.4 RBC 3.99 L Hgb 10.1 L Hct 30.4 L MCV 76.4 L MCH 25.4 L MCHC 33.3 RDW 15.4 H Plt Count 311 Neut % (Auto) 71.7 Lymph % (Auto) 22.2 L [place] % (Auto) 4.3 Eos % (Auto) 1.6 L Baso % (Auto) 0.2 Neut # (Auto) 6000 Lymph # (Auto) 1900 [place] # (Auto) 400 Eos # (Auto) 100 Baso # (Auto) 0 Urine Color Yellow Urine Appearance Clear Urine pH 6.0 Ur Specific [place] >=1.030 H Urine Protein 1+ H Urine Glucose (UA) Negative Urine Ketones Trace H Urine Occult Blood Negative Urine Nitrate Negative Urine Bilirubin 1+ H Ur Bilirubin Confirm Negative Urine Urobilinogen 1.0 Ur Leukocyte Esterase Negative Urine RBC Cancelled None seen Urine WBC Cancelled Ur Squamous Epith Cells Ur Transition Epith Cell Ur Renal Epithelial Cell Calcium Oxalate Crystal Uric Acid Crystals Triple Phos Crystals Other Crystals Amorphous Sediment Urine Bacteria Hyaline Casts Granular Casts RBC Casts WBC Casts Other Casts Urine Mucus Urine Trichomonas Urine Yeast Urine Sperm Ur Culture Indicated? Micro UA Comment Vol Urine Centrifuged 11/27/23 11/27/23 11/27/23 01:50 01:50 01:50 WBC RBC Hgb Hct MCV MCH MCHC RDW Plt Count Neut % (Auto) Lymph % (Auto) [place] % (Auto) Eos % (Auto) Baso % (Auto) Neut # (Auto) Lymph # (Auto) [place] # (Auto) Eos # (Auto) Baso # (Auto) Urine Color Urine Appearance Urine pH Ur Specific [place] Urine Protein Urine Glucose (UA) Urine Ketones Urine Occult Blood Urine Nitrate Urine Bilirubin Ur Bilirubin Confirm Urine Urobilinogen Ur Leukocyte Esterase Urine RBC Urine WBC 1-5/hpf Ur Squamous Epith Cells Cancelled 0-1 /hpf D Ur Transition Epith Cell Cancelled Ur Renal Epithelial Cell Cancelled Calcium Oxalate Crystal Cancelled Uric Acid Crystals Cancelled Triple Phos Crystals Cancelled Other Crystals Cancelled Amorphous Sediment Cancelled Urine Bacteria Cancelled Few (2-10) H Hyaline Casts Cancelled Granular Casts Cancelled RBC Casts Cancelled WBC Casts Cancelled Other Casts Cancelled Urine Mucus Cancelled Urine Trichomonas Cancelled Urine Yeast Cancelled Urine Sperm Cancelled Ur Culture Indicated? Cancelled Micro UA Comment Vol Urine Centrifuged 11/27/23 11/27/23 01:50 01:50 WBC RBC Hgb Hct MCV MCH MCHC RDW Plt Count Neut % (Auto) Lymph % (Auto) [place] % (Auto) Eos % (Auto) Baso % (Auto) Neut # (Auto) Lymph # (Auto) [place] # (Auto) Eos # (Auto) Baso # (Auto) Urine Color Urine Appearance Urine pH Ur Specific [place] Urine Protein Urine Glucose (UA) Urine Ketones Urine Occult Blood Urine Nitrate Urine Bilirubin Ur Bilirubin Confirm Urine Urobilinogen Ur Leukocyte Esterase Urine RBC Urine WBC Ur Squamous Epith Cells Ur Transition Epith Cell Ur Renal Epithelial Cell Calcium Oxalate Crystal Uric Acid Crystals Triple Phos Crystals Other Crystals Amorphous Sediment Urine Bacteria Hyaline Casts Granular Casts RBC Casts WBC Casts Other Casts Urine Mucus Urine Trichomonas Urine Yeast Urine Sperm Ur Culture Indicated? Specimen cultured Micro UA Comment Cancelled Vol Urine Centrifuged Cancelled 10ml (spun) Assessment and Plan Assessment and Plan Assessment and Plan narrative: 33yo at 37w5d here in active labor. Hx of followed by followed by . GBS negative, Rh negative. Will proceed with repeat . Pt declines salpingectomy. Discussed risks including but not limited to bleeding/hemorrhage, infection, injury to other organs such as bowel/bladder, injury to fetus. The pt agrees to blood transfusion if medically necessary. Consent was signed and placed in the chart. Pt will receive Clindamycin and Gentamicin prior to delivery due to cephalosporin allergy. SCDs to be placed. Time-Based Coding :: [TOTAL MINUTES] spent with patient and on the chart (including review of chart, obtaining history, exam, reviewing outside data, placing orders, documenting exam and treatment plan, and counseling patient) on [DATE].
[2023-11-27] MEDS: CITRIC ACID/SODIUM CITRATE 15 ML SOLUTION 30 ML PO (03:31)
[2023-11-27] MEDS: LACTATED RINGERS 1,000 ML 999 ML IV (03:32)
--- NOTE | 2023-11-27 03:34 | PM.PREOP ---
Pre-operative Note Interval Note History & Physical reviewed/Exam performed by Physician: Yes Changes to H&P: No
[2023-11-27] MEDS: CLINDAMYCIN 900 MG/50 ML PIGGYBACK 50 MG IV (04:35)
[2023-11-27] MEDS: GENTAMICIN IV (04:40)
[2023-11-27] MEDS: SODIUM CHLORIDE 0.9% IV (04:40)
--- NOTE | 2023-11-27 05:06 | SUR.OPER ---
Pre-op FHT = 160 BPM. Viable baby boy born at 0505.
[2023-11-27 05:49] VITALS: BP 94/59; PULSE 82; RESP 14; TEMP 36.7; O2SAT 98
--- NOTE | 2023-11-27 05:51 | P.OP_ITS ---
Operative Date/Time/Diagnoses Date of procedure: 11/27/23 Time of procedure: 05:00 Pre-op diagnosis: 37w5d gestation GBS negative Rh negative Hx of prior Active labor Post-op diagnosis: same Procedure & Clinicians Procedure: Repeat Same procedure as scheduled: Yes Indications: Hx of prior Active labor Surgeon: Chapis Lewis Animated Cartoons Painter: Ann Marie Najera Anesthesia Type: Spinal Operative Notes Findings: Normal uterus, ovaries, and tubes Closure Type: primary Specimen(s): cord blood Intraoperative meds administered: Duramorph, Ketorolac and Pitocin Applied: Catheter Estimated Blood Loss (mL): 450 Blood products transfused: none Procedure in detail: OPERATIVE COURSE: The patient was taken to the operating room where spinal anesthesia was placed. She was then prepared and draped in the normal sterile fashion in the dorsal supine position with a leftward tilt. Anesthesia was tested and found to be adequate. A Pfannensteil skin incision was then made with the scalpel and carried through to the underlying layer of fascia with the scalpel. The fascia was incised in the midline and the incision extended laterally with the Rosado scissors. The superior aspect of the fascial incision was then grasped with Lupe clamps, elevated with the help of the printer floor covering assistant, and the underlying rectus muscles dissected off bluntly and sharply where needed. Attention was then turned to the inferior aspect of the incision which, in a similar fashion, was grasped, tented up with Lupe clamps, and the rectus muscle dissected off bluntly and sharply with Rosado scissors. Significant adhesions were present between the fascia and rectus. The rectus muscles were then in the midline, and the peritoneum was identified and entered bluntly. The peritoneal incision was then extended with good visualization of the bladder. Retraction was provided by the printer floor covering assistant. The bladder blade was then inserted and the vesicouterine peritoneum identified, grasped with pick-ups and entered sharply with the Metzenbaum scissors. The incision was then extended laterally and the bladder flap created digitally. The lower uterine segment was noted to be very thin, and could see the particles floating in the amniotic fluid through the uterus. The bladder blade was then reinserted and the lower uterine segment incised in a transverse fashion with the scalpel, with the printer floor covering assistant providing suction. The uterine incision was then extended superolaterally by pulling superolaterally on both sides. Membranes were ruptured and fluid was clear. The bladder blade was removed the infant's head was flexed out of OP position and delivered atraumatically, with fundal pressure by the printer floor covering assistant. The nose and mouth were suctioned with bulb suction and the cord was clamped and cut. The was handed off to the waiting nursing staff. Cord blood was collected for Rh status. The placenta was then delivered with gentle cord traction. The uterus was then cleared of all clots and debris. The uterine incision was repaired with O- Vicryl in a running, locked fashion. A second layer of the same suture was used to obtain excellent hemostasis. The gutters were cleared of all clots. Hysterotomy was investigated and found to be hemostatic. The peritoneum was closed with 3-O Vicryl. The fascia was reapproximated with O-Vicryl in a running fashion. The subcutaneous tissue was reapproximated with 3-O Vicryl. The skin was closed with 4-O Vicryl. The printer floor covering assistant helped with retraction during closures. SPONGE AND NEEDLE COUNTS: Correct x3. DRESSING: KEYON due to hx of reaction to Aquacel in the past ANTICOAGULATION: SCDs applied prior to Surgery Preop antibiotics given (see MAR). The patient was taken to recovery room having tolerated procedure well. Complications: none Baby 1: Infant Gender: Male Presentation: vertex Position: Left Occiput Posterior Placental Delivery Description: Spontaneous Cord Vessel Description: 3 Vessels score (1 min): 9 score (5 min): 10 weight: 8 lb 0.75 oz Post-operative Condition: stable Disposition: PACU Aftercare: routine postop
[2023-11-27 05:54] VITALS: BP 119/56; PULSE 84; RESP 24; O2SAT 98
[2023-11-27 05:59] VITALS: BP 101/59; PULSE 85; RESP 21; O2SAT 95
[2023-11-27 06:04] VITALS: BP 105/60; PULSE 97; RESP 15; O2SAT 95
[2023-11-27 06:13] VITALS: BP 106/59; PULSE 98; RESP 17; TEMP 36.3; O2SAT 98
--- NOTE | 2023-11-27 06:25 | SUR.PHASEI ---
0610 See order for IV Tylenol. OK to give by L&D RN. Pt transferred to L&D in bed with Sandra BUSTILLO and baby on mom's chest breast feeding.
[2023-11-27] MEDS: ACETAMINOPHEN IV 1,000 MG/100 ML VIAL 400 MG IV (07:05)
[2023-11-27] MEDS: LANOLIN OINT 7 GM 1 APPLIC TOP (08:27)
[2023-11-27] MEDS: PRENATAL VIT,CALC/IRON/FOLIC 1 TABLET 1 TAB PO (08:27)
[2023-11-27] MEDS: FERROUS SULFATE 325 MG TABLET PO (08:27)
[2023-11-27] MEDS: DOCUSATE 100 MG CAPSULE PO (08:27)
[2023-11-27 08:28] VITALS: TEMP 36.6
[2023-11-27] MEDS: OXYCODONE IR 5 MG TABLET PO ×3 (08:28→16:05)
[2023-11-27] MEDS: diphenhydrAMINE 50 MG/ML VIAL 25 MG IV (10:31)
[2023-11-27] MEDS: KETOROLAC 30 MG/ML VIAL IV ×2 (12:14→18:28)
--- NOTE | 2023-11-27 12:35 | PM.OBPN.1 ---
Subjective - OB Subjective Patient comments: pain well controlled Narrative: 33yo [id number] POD#1 s/p RLTCS. She reports feeling well, pain controlled. Hasn't ambulated yet. Tolerating regular diet. Jamil catheter in place. Date Patient Seen: 11/27/23 Time Patient Seen: 12:36 Exam Vital Signs (past 8 hours): - 11/27/23 05:49 11/27/23 05:54 11/27/23 05:59 Temperature 98.1 F Pulse Rate 82 84 85 Respiratory Rate 14 24 21 Blood Pressure 94/59 L 119/56 L 101/59 L Pulse Oximetry 98 98 95 Oxygen Delivery Method Room Air Room Air Room Air 11/27/23 06:04 11/27/23 06:13 11/27/23 08:28 Temperature 97.4 F L 97.8 F Pulse Rate 97 H 98 H Respiratory Rate 15 17 Blood Pressure 105/60 106/59 L Pulse Oximetry 95 98 Oxygen Delivery Method Room Air Room Air Oxygen Delivery Method Room Air vitals reviewed in OBIX Const General: comfortable and No acute distress Resp Effort & Inspection: normal respiratory effort and able to speak in complete sentences GI Other: soft, nontender, nondistended Other: low transverse incision covered with KEYON dressing, no strikethrough noted Neuro Cognition: normal cognition Speech: speech normal Extrem General: no calf tenderness Psych Mood: congruent mood Affect: normal affect Objective Labs 11/27/23 01:10 Labs: Laboratory Results - last 24 hr 11/27/23 11/27/23 11/27/23 01:10 01:50 01:50 WBC 8.4 RBC 3.99 L Hgb 10.1 L Hct 30.4 L MCV 76.4 L MCH 25.4 L MCHC 33.3 RDW 15.4 H Plt Count 311 Neut % (Auto) 71.7 Lymph % (Auto) 22.2 L [place] % (Auto) 4.3 Eos % (Auto) 1.6 L Baso % (Auto) 0.2 Neut # (Auto) 6000 Lymph # (Auto) 1900 [place] # (Auto) 400 Eos # (Auto) 100 Baso # (Auto) 0 Urine Color Yellow Urine Appearance Clear Urine pH 6.0 Ur Specific [place] >=1.030 H Urine Protein 1+ H Urine Glucose (UA) Negative Urine Ketones Trace H Urine Occult Blood Negative Urine Nitrate Negative Urine Bilirubin 1+ H Ur Bilirubin Confirm Negative Urine Urobilinogen 1.0 Ur Leukocyte Esterase Negative Urine RBC Cancelled None seen Urine WBC Cancelled Ur Squamous Epith Cells Ur Transition Epith Cell Ur Renal Epithelial Cell Calcium Oxalate Crystal Uric Acid Crystals Triple Phos Crystals Other Crystals Amorphous Sediment Urine Bacteria Hyaline Casts Granular Casts RBC Casts WBC Casts Other Casts Urine Mucus Urine Trichomonas Urine Yeast Urine Sperm Ur Culture Indicated? Micro UA Comment Vol Urine Centrifuged Blood Type A Negative Antibody Screen Negative 11/27/23 11/27/23 11/27/23 01:50 01:50 01:50 WBC RBC Hgb Hct MCV MCH MCHC RDW Plt Count Neut % (Auto) Lymph % (Auto) [place] % (Auto) Eos % (Auto) Baso % (Auto) Neut # (Auto) Lymph # (Auto) [place] # (Auto) Eos # (Auto) Baso # (Auto) Urine Color Urine Appearance Urine pH Ur Specific [place] Urine Protein Urine Glucose (UA) Urine Ketones Urine Occult Blood Urine Nitrate Urine Bilirubin Ur Bilirubin Confirm Urine Urobilinogen Ur Leukocyte Esterase Urine RBC Urine WBC 1-5/hpf Ur Squamous Epith Cells Cancelled 0-1 /hpf D Ur Transition Epith Cell Cancelled Ur Renal Epithelial Cell Cancelled Calcium Oxalate Crystal Cancelled Uric Acid Crystals Cancelled Triple Phos Crystals Cancelled Other Crystals Cancelled Amorphous Sediment Cancelled Urine Bacteria Cancelled Few (2-10) H Hyaline Casts Cancelled Granular Casts Cancelled RBC Casts Cancelled WBC Casts Cancelled Other Casts Cancelled Urine Mucus Cancelled Urine Trichomonas Cancelled Urine Yeast Cancelled Urine Sperm Cancelled Ur Culture Indicated? Cancelled Micro UA Comment Vol Urine Centrifuged Blood Type Antibody Screen 11/27/23 11/27/23 01:50 01:50 WBC RBC Hgb Hct MCV MCH MCHC RDW Plt Count Neut % (Auto) Lymph % (Auto) [place] % (Auto) Eos % (Auto) Baso % (Auto) Neut # (Auto) Lymph # (Auto) [place] # (Auto) Eos # (Auto) Baso # (Auto) Urine Color Urine Appearance Urine pH Ur Specific [place] Urine Protein Urine Glucose (UA) Urine Ketones Urine Occult Blood Urine Nitrate Urine Bilirubin Ur Bilirubin Confirm Urine Urobilinogen Ur Leukocyte Esterase Urine RBC Urine WBC Ur Squamous Epith Cells Ur Transition Epith Cell Ur Renal Epithelial Cell Calcium Oxalate Crystal Uric Acid Crystals Triple Phos Crystals Other Crystals Amorphous Sediment Urine Bacteria Hyaline Casts Granular Casts RBC Casts WBC Casts Other Casts Urine Mucus Urine Trichomonas Urine Yeast Urine Sperm Ur Culture Indicated? Specimen cultured Micro UA Comment Cancelled Vol Urine Centrifuged Cancelled 10ml (spun) Blood Type Antibody Screen Assessment & Plan Assessment and Plan (1) delivery delivered: Status: Acute (2) Anemia affecting : Status: Acute (3) Rh negative, antepartum: Status: Acute Plan day: 1 plan OB: routine postop care Comments: 33yo [id number] POD#1 s/p RLTCS, doing well. -encouraged ambulation today -d/c jamil once ambulatory -check CBC in the morning to evaluate anemia -if mom and baby do well, plan for discharge tomorrow morning Time-Based Coding :: [20min] spent with patient and on the chart (including review of chart, obtaining history, exam, reviewing outside data, placing orders, documenting exam and treatment plan, and counseling patient) on [11/27/23].
[2023-11-28] MEDS: KETOROLAC 30 MG/ML VIAL IV (00:31)
[2023-11-28] MEDS: OXYCODONE IR 5 MG TABLET PO ×3 (00:36→08:44)
[2023-11-28] MEDS: IBUPROFEN 600 MG TABLET PO (06:30)
[2023-11-28] MEDS: ACETAMINOPHEN 325 MG TABLET 650 MG PO (06:30)
[2023-11-28 07:06] LABS: Add Manual Diff / Slide Review NO; Basophils Absolute Auto 0 /uL (0-100); Basophils Percent Auto 0.3 % (0-2); Eosinophils Absolute Auto 200 /uL (0-450); Eosinophils Percent Auto 2.1 % (2-4); Hematocrit 26.2 % (36-46); Hemoglobin 8.8 g/dL (12.0-16.0); Lymphocytes Absolute Auto 2500 /uL (1100-4500); Lymphocytes Percent Auto 26.5 % (25-40); Mean Corpuscular HGB Conc 33.7 % (30-36); Mean Corpuscular Hemoglobin 25.9 PG (26-34); Mean Corpuscular Volume 76.9 fL (80-100); Monocytes Absolute Auto 900 /uL (0-900); Monocytes Percent Auto 9.5 % (3-14); Neutrophils Absolute Auto 5800 /uL (1500-7000); Neutrophils Percent Auto 61.6 % (50-75); Platelet Count 260 X10^3/uL (150-400); Red Cell Distribution Width 15.4 % (11.6-14.8); White Blood Cell Count 9.4 X10^3/uL (4.5-11.0)
--- NOTE | 2023-11-28 08:42 | PM.OBDS.1 ---
Discharge Providers Provider Date of admission: 11/27/23 00:09 Discharge Date: 11/28/23 Primary care physician: VICTORINO Nelson Consults: 11/27/23 06:17 Consult to Weigher [employer] Charger Routine Comment: Discharge provider: Dino Jose MD Summary Hospital Course Date Patient Seen: 11/28/23 Time Patient Seen: 08:42 Diagnoses: Intrauterine gestation, 37+ 5 weeks, delivered by repeat section in labor Prior section Hospital Course: Chana was admitted on the morning of 11/26/2001 1024 with progressively intense contractions at 37+ 5 weeks gestational age. Due to prior section and planned repeat section, patient underwent repeat section by low transverse cervical incision early on the morning of 11/27/2023. Following her surgery which was uncomplicated and well summarized on the operative note of that date, she is done extremely well with prompt return of bowel and bladder function, she is ambulating independently, tolerating a regular diet, and her admitted occasions are relieving her pain nicely. She will be discharged at this time to home in an afebrile normotensive condition after counseling regarding precautionary symptoms, limitations activity, medications, and plans for follow-up which will be in 1 week. Medications at discharge will include ibuprofen 600 mg every 6 hours as needed for pain, oxycodone 5 mg every 4-6 hours as needed for pain, dispensed 15 with no refills, and sertraline 50 mg p.o. q.d. due to her history of depression and early signs of depressive symptoms at the time of discharge. Peripartum Data Delivery Method: Section Laceration Description: None Episiotomy description: None complications: none [place] 1: Gender: Male Disposition of : home Discharge Diagnosis (1) delivery delivered: Status: Acute (2) Anemia affecting : Status: Acute (3) Rh negative, antepartum: Status: Acute Status at Discharge Cognitive/behavioral status at discharge: oriented Functional status at discharge: independent ambulation Overall status at discharge: patient is progressing back to baseline Time Spent with Patient Time attestation: Total time spent providing and/or coordinating discharge services: Time spent: Less than 30 minutes Objective Labs 11/28/23 06:27 Labs: Laboratory Results - last 24 hr 11/28/23 06:27 WBC 9.4 RBC 3.40 L Hgb 8.8 L Hct 26.2 L MCV 76.9 L MCH 25.9 L MCHC 33.7 RDW 15.4 H Plt Count 260 Neut % (Auto) 61.6 Lymph % (Auto) 26.5 [place] % (Auto) 9.5 Eos % (Auto) 2.1 Baso % (Auto) 0.3 Neut # (Auto) 5800 Lymph # (Auto) 2500 [place] # (Auto) 900 Eos # (Auto) 200 Baso # (Auto) 0 Exam Vital Signs (past 8 hours): Oxygen Delivery Method Room Air Const General: cooperative and comfortable Nutritional Appearance: average body habitus Orientation: alert and oriented x3 HENMT Head: normal to inspection, atraumatic and abrasion Ears: hearing grossly normal bilaterally Face and sinus: face symmetric Eyes General: appearance normal, both eyes and all related structures Conjunctivae: conjunctivae normal Sclera: sclerae normal EOM: EOM intact bilaterally Neck Neck: normal visual inspection Resp Effort & Inspection: normal respiratory effort and able to speak in complete sentences Auscultation: clear to auscultation bilaterally Cardio Rate: regular rate Rhythm: regular rhythm Heart Sounds: S1 normal, S2 normal and no murmurs GI Inspection: normal to inspection and incision (Surgical dressing clean and dry) Palpation: soft, no hepatosplenomegaly and tender (Mild, diffuse postsurgical tenderness) Auscultation: normal bowel sounds External Female Exam: other (No significant bleeding noted) Extrem General: no calf tenderness Psych Appearance: grossly normal Mental Status: mental status grossly normal Speech and Movement: speech and movement normal Mood: congruent mood Affect: normal affect Attitude: cooperative Thought Process: normal Thought Content: normal Judgment: judgment good Discharge Plan Discharge Plan Patient Disposition: Home Provider Discharge Comment: Please review the written instructions you received when you were discharged from the hospital. Your follow-up appointment is scheduled for 1 week after delivery and I look forward to seeing you then. If however in the meanwhile you have any issues, concerns, or questions, please contact me either through the office phone at [phone], or via the patient portal. Discharge orders & Medications Prescriptions: New ibuprofen 600 mg Tablet 600 mg PO Q6H Qty: 30 2RF oxycodone 5 mg Tablet 5 mg PO Q4-6H PRN (Reason: Pain, Moderate (4-6)) Qty: 15 0RF sertraline 50 mg tablet 50 mg PO DAILY Qty: 30 12RF Continued hydroxyzine HCl 25 mg tablet 25 mg PO QID PRN (Reason: itching) Qty: 30 0RF prenat.vits,chasidy,stp-gefe-hyotc Tablet 1 tab PO DAILY No Action nystatin-triamcinolone 100,000-0.1 unit/g-% cream 1 applic topical BID Qty: 60 1RF Follow up/Referrals: Dino Jose MD [Physician] - (1 week Incision check w/ Dr. Jose: December 04 @ 11:45am 6 week Appt w/ Dr. Jose: January 08 @ 11am) Discharge Health Status Multidrug resistant organism: No MDRO Diet/Activity/Treatments Diet: Diet as Tolerated Activity: As tolerated Other treatments: Qtpd-tmj-khxqxve Tylenol may be used for additional pain relief. Pisd-jga-bkusxib stool softeners and/or MiraLax may be used as needed for constipation Skin/Wound/Dressing Care Report to your healthcare provider any signs of infection, such as:: chills, fever, increased pain, unusual drainage and unusual redness Dressing: Keep incision loosely covered with clean dressing for comfort Visit Report/Discharge Packet Instructions: DI for , DI for Depression, DI for and Nipple Soreness Stand Alone Forms: Discharge: Care Discharge Data Primary Care Provider: Shasta Ferguson
[2023-11-28] MEDS: FERROUS SULFATE 325 MG TABLET PO (08:44)
[2023-11-28] MEDS: DOCUSATE 100 MG CAPSULE PO (08:44)
[2023-11-28] MEDS: PRENATAL VIT,CALC/IRON/FOLIC 1 TABLET 1 TAB PO (08:44)
[2023-11-28] MEDS: diphenhydrAMINE 25 MG TABLET PO (08:44)
[2023-11-28] MEDS: RHO(D) IMMUNE GLOBULIN 1,500 UNIT SYRINGE 1500 UNIT IM (08:44)
== END 2023-11-28 11:30 | disposition home or self-care (01) | DRG 788 ==
PROVIDERS: Admitting Provider Family Medicine; PCP Nurse Practitioner Family; Referring Provider Family Medicine; Visit Provider Family Medicine
PROC: 10D00Z1 Extraction of Products of Conception, Low, Open Approach (ICD-10-PCS; CPT 59514; principal; 2023-11-27 03:30)
DX: O34.211 Maternal care for low transverse scar from previous cesarean delivery (principal); Z3A.37 37 weeks gestation of pregnancy; Z37.0 Single live birth
CPT/HCPCS: 36415; 59050; 81001; 85025; 86850; 86900; 86901; 87086; G0379; J0136; J1100; J1200; J1885; J2274; J2405; J2790

== ENCOUNTER 2025-04-14 23:49 | Emergency (ER) | payer OTHER, SELFPAY ==
[2025-04-14 23:54] VITALS: BP 141/87; PULSE 75; RESP 14; TEMP 36.8; O2SAT 96; BMI 34.9
[2025-04-15 00:44] LABS: Add Manual Diff / Slide Review NO; Hematocrit 38.3 % (36-46); Hemoglobin 12.9 g/dL (12.0-16.0); Lymphocytes Absolute Auto 2800 /uL (1100-4500); Mean Corpuscular HGB Conc 33.8 % (30-36); Mean Corpuscular Hemoglobin 27.3 PG (26-34); Mean Corpuscular Volume 80.8 fL (80-100); Platelet Count 302 X10^3/uL (150-400)
[2025-04-15 00:54] LABS: Acetaminophen < 10 ug/mL (10-30); Alanine Aminotransferase 16 IU/L (<35); Albumin 4.7 g/dL (3.5-5.0); Albumin Globulin Ratio 1.6 (1.0-2.8); Alkaline Phosphatase 128 U/L (38-126); Blood Urea Nitrogen 14 mg/dL (7-17); Calcium 9.2 mg/dL (8.4-10.2); Carbon Dioxide 23 mmol/L (22-32); Chloride 107 mmol/L (98-107); Estimated Glomerular Filt Rate > 60 mL/min (>60); Ethanol (ETOH) < 10 mg/dL (<10); Globulin 3.0 g/dL (1.7-4.1); Glucose 125 mg/dL (70-99); HEMOLYSIS 18 (0-50); Potassium 3.8 mmol/L (3.4-5.1); Salicylate < 1.0 mg/dL (<20); Sodium 140 mmol/L (137-145); Total Protein 7.7 g/dL (6.3-8.2)
--- NOTE | 2025-04-15 01:06 | EKG_ITS ---
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
--- NOTE | 2025-04-15 01:07 | EKG_ITS ---
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
[2025-04-15 01:19] LABS: Ur Specific Gravity Normal (Normal)
--- NOTE | 2025-04-15 01:19 | ED_ITS ---
HPI - Psych General Chief Complaint: Psychiatric Symptoms Stated Complaint: DAVID Time Seen by Provider: 04/14/25 23:56 Source: patient and police Mode of arrival: Ambulatory History of Present Illness HPI Narrative: Patient is a 34-year-old female history of depression, presenting today by police for suicidal ideations. She was on the phone with suicide hotline today and a friend heard about it the friend called the police. Patient willingly came with the police. Police did fill out an DAVID. He reports that she had thoughts today of wanting to hurt herself and to jump off the bridge. Last week she went into her car in the garage and started the car but quickly stopped the car. She has 4 children at home. She does have a history of depression. She has been talking to therapist online, she was recently started on Zoloft she has not been on it for very long but does not feel like it is helping. She would like some help now. She has 4 children they are all currently safe with her has been home, youngest is 1 year. She feels supported at home with him. Related Data Home Medications ?Medication ?Instructions ?Recorded ?Confirmed prenat.vits,chasidy,lhn-fpxt-bkqvx 1 tab PO DAILY 12/29/21 01/02/24 famotidine 20 mg tablet 20 mg PO BID 01/23/24 sertraline 25 mg tablet 25 mg PO QAM 04/15/25 Allergies Allergy/AdvReac Type Severity Reaction Status Date / Time amoxicillin Allergy Mild Rash Verified 01/23/24 10:31 cefaclor (From [facility]) Allergy Mild Rash Verified 01/23/24 10:31 Patient History Medical History Contact dermatitis and other eczema, due to unspecified cause PTSD (post-traumatic stress disorder) (~2011) ADHD (~1992) Fracture of 5th metatarsal Nasal turbinate hypertrophy Nasal septal deviation Depression (~2011) Anxiety (~2011) Allergic rhinitis Surgical History Anesthesia History of rhinoplasty (~2020) History of section (~05/2013) History of appendectomy (~08/2015) Family History Mother Diabetes mellitus Pancreatic cancer Grandmother Thyroid cancer Grandfather Lung cancer Social History marital status: number of children: 3 household members: spouse, children and other lives independently: Yes caregiver/support person: Yes housing: house pets and animals: Yes (1 cat, 1 dog) education level: college occupational status: previously employed current occupational exposures/hazards: No special thien needs: No travel history: over 6 months ago seatbelt use: always helmet use: Yes water heater temp set < 120 deg: No (Will have adjust) working smoke detector in home: Yes fire extinguisher in home: Yes carbon monox detector in home: Yes firearms in home: Yes firearms unloaded and locked: Yes do you feel safe at home: Yes Smoking Status: Never smoker second hand exposure: Yes ( vapes (not around pt)) alcohol intake: former substance use type: does not use during the past year weight has: increased > 10 lbs well-balanced diet: about half the time daily servings fruits/ve-4 caffeine: Yes (1 cup coffee or soft drink/day) Type(s) of exercise: walking additional social history: Pt having problems recently w/ anxiety and depression. Has been off meds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. Recently having feelings of worthlessness and being overwhelmed, denies suicidal ideation. Discussed counseling (pt can access through [facility]), encouraged outdoors and interactive activities, Vitamin D supplementation, yoga/meditation. Pt believes this is a good starting point and will reach out if she needs more. Smoking Status: Never smoker alcohol intake frequency: holidays/special occasions only Exam Initial Vital Signs Initial Vital Signs: Vital Signs Temperature 98.3 F 04/14/25 23:54 Pulse Rate 75 04/14/25 23:54 Respiratory Rate 14 04/14/25 23:54 Blood Pressure 141/87 H 04/14/25 23:54 Pulse Oximetry 96 04/14/25 23:54 Oxygen Delivery Method Room Air 04/14/25 23:54 GENERAL: Alert quiet 34-year-old female good eye contact CARDIOVASCULAR: peripheral pulses in tact, cap refill <2 sec RESPIRATORY: No respiratory distress, speaks in full sentences without difficulty EXTREMITIES: Normal range of motion, no clubbing or edema. Neurovascularly intact NEUROLOGICAL: Cranial nerves II through XII grossly intact. Normal gait and speech. SKIN: Warm, dry, no petechiae, no rashes or lesions. Psych Appearance: grossly normal Mental Status: mental status grossly normal Speech and Movement: speech and movement normal Mood: dysthymic mood Affect: sad and indifferent Attitude: cooperative Thought Process: normal Thought Content: no homicidality and suicidality Judgment: fair Course Orders Ordered: ED Orders 04/15/25 00:03 Consult to STORM WINDOW INSTALLER - Putty Mixer And Applier Routine EKG-12 Lead Stat 04/15/25 00:31 Acetaminophen Stat Complete Blood Count AUTO DIFF Stat Comprehensive Metabolic Panel Stat Ethanol (ETOH) Stat Salicylate Stat TSH w/ Reflex to FT4 Stat 04/15/25 01:00 Urine Culture Stat Urine Drug Screen, Rapid Stat Urine Microscopic Stat 04/15/25 01:07 EKG-12 Lead Routine Vital Signs Vital signs: Vital Signs - 8 hr 04/14/25 23:54 04/15/25 05:55 Temperature 98.3 F 98.8 F Pulse Rate 75 92 H Respiratory Rate 14 18 Blood Pressure 141/87 H 142/77 H Pulse Oximetry 96 100 Oxygen Delivery Method Room Air Room Air MDM - Psych Lab Data 04/15/25 00:31 04/15/25 00:31 Labs: Lab Results 04/15/25 04/15/25 Range/Units 00:31 01:00 WBC 8.9 (4.5-11.0) X10^3/uL RBC 4.74 (4.0-5.2) X10^6/uL Hgb 12.9 (12.0-16.0) g/dL Hct 38.3 (36-46) % MCV 80.8 (80-100) fL MCH 27.3 (26-34) PG MCHC 33.8 (30-36) % RDW 13.3 (11.6-14.8) % Plt Count 302 (150-400) X10^3/uL Neut % (Auto) 58.4 (50-75) % Lymph % (Auto) 31.8 (25-40) % [place] % (Auto) 5.7 (3-14) % Eos % (Auto) 2.3 (2-4) % Baso % (Auto) 1.8 (0-2) % Neut # (Auto) 5200 (5268-6977) /uL Lymph # (Auto) 2800 (5077-9161) /uL [place] # (Auto) 500 (0-900) /uL Eos # (Auto) 200 (0-450) /uL Baso # (Auto) 200 H (0-100) /uL Sodium 140 (137-145) mmol/L Potassium 3.8 (3.4-5.1) mmol/L Chloride 107 (98-107) mmol/L Carbon Dioxide 23 (22-32) mmol/L BUN 14 (7-17) mg/dL Creatinine 0.71 (0.52-1.04) mg/dL Estimated GFR > 60 (>60) mL/min BUN/Creatinine Ratio 19.7 (6-22) Glucose 125 H (70-99) mg/dL Calcium 9.2 (8.4-10.2) mg/dL Total Bilirubin 0.3 (0.2-1.3) mg/dL AST 20 (14-36) IU/L ALT 16 (<35) IU/L Alkaline Phosphatase 128 H (38-126) U/L Total Protein 7.7 (6.3-8.2) g/dL Albumin 4.7 (3.5-5.0) g/dL Globulin 3.0 (1.7-4.1) g/dL Albumin/Globulin Ratio 1.6 (1.0-2.8) TSH 3.13 (0.47-4.68) uIU/mL Urine RBC 0-1/hpf (0-5/HPF) Urine WBC None seen (0-5/HPF) Ur Squamous Epith Cells 1-5 /hpf (0-5/HPF) Amorphous Sediment 2+ Urine Bacteria Occasional (0-1) (None) Urine Mucus 1+ H (Negative) Ur Culture Indicated? Cult not indicated Vol Urine Centrifuged 10ml (spun) Salicylates < 1.0 (<20) mg/dL U Opiates 300ng/mL cut Negative (Negative) Ur Oxycodone Screen Negative (Negative) Urine Methadone Screen Negative (Negative) Acetaminophen < 10 (10-30) ug/mL Ur Barbiturates Screen Negative (Negative) U Tricyclic Antidepress Negative (Negative) Ur Phencyclidine Scrn Negative (Negative) Ur Amphetamines Screen Negative (Negative) U Methamphetamines Scrn Negative (Negative) Ur MDMA Scrn (Ecstasy) Negative (Negative) U Benzodiazepines Scrn Negative (Negative) Urine Cocaine Screen Negative (Negative) U Marijuana (THC) Screen Negative (Negative) Urine pH Normal (Normal) Urine Specific [place] Normal (Normal) Ethyl Alcohol < 10 (<10) mg/dL Ur Creatinine Normal (Normal) Point of Care Testing Test Results Negative Urine Dip Bedside Urine Glucose Negative Bedside Urine Bilirubin - Negative Bedside Urine Ketone - Negative Urine Specific [place] 1.015 Bedside Urine Occult Blood + Bedside Urine pH 7.0 Bedside Urine Protein - Negative Bedside Urine Urobilinogen - Negative Bedside Urine Nitrite - Negative Bedside Urine Leukocytes - Negative Esterase MDM Narrative Medical decision making narrative: Patient 34-year-old female presenting to day with suicidal ideations. She is willing to get help. Blood work has been reviewed overall reassuring no significant abnormalities Patient accepted a [facility] Discharge Plan Departure Patient Disposition: Xfer Psychiatric Hosp Clinical Impression: Suicidal ideation Prescriptions: No Action famotidine 20 mg tablet 20 mg PO BID prenat.vits,chasidy,gan-lltb-nahsp Tablet 1 tab PO DAILY sertraline 25 mg tablet 25 mg PO QAM Referrals: Shasta Ferguson ARNP [Primary Care Provider, Nursing]
[2025-04-15 01:20] LABS: UR Morphine/Opiate cutoff 300 Negative (Negative); Urine MDMA Negative (Negative); Urine Methamphetamines Negative (Negative); Urine Tetrahydrocannabinol Negative (Negative); Urine Tricyclic Antidepressant Negative (Negative)
[2025-04-15 01:35] LABS: Culture Indicated Urine Cult Not Indicated
[2025-04-15 01:52] LABS: TSH w/ Reflex to FT4 3.13 uIU/mL (0.47-4.68)
[2025-04-15 05:55] VITALS: BP 142/77; PULSE 92; RESP 18; TEMP 37.1; O2SAT 100
== END 2025-04-15 05:57 ==
PROVIDERS: Emergency Provider Emergency Medicine; PCP Nurse Practitioner Family
DX: R45.851 Suicidal ideations (principal); Z86.59 Personal history of other mental and behavioral disorders
CPT/HCPCS: 36415; 80053; 80305; 80320; 80329; 81003; 81015; 81025; 84443; 85025; 87086; 93005; 99284; G0480